=== PATIENT | female | born 1970 | race Caucasian/White ===

== ENCOUNTER 2019-12-14 12:11 | Emergency (ER) | payer BC, SELFPAY ==
--- NOTE | ~2019-12-14 | XR_ITS ---
XR chest 2V DATE: 12/14/2019 13:34 INDICATION: Cough TECHNIQUE: PA and lateral views COMPARISON: 08/30/2017 PA and lateral chest FINDINGS: Normal heart size. No hilar or mediastinal enlargement. No pulmonary infiltrate or consolid ation, pleural effusion or pulmonary vascular congestion or pneumothorax. IMPRESSION: No active cardiopulmonary disease Reviewed, dictated and finalized at location A. ICAL SUPPORT MANAGER
--- NOTE | 2019-12-14 12:24 | PC.NURSE ---
in br to obtain ua spec.
[2019-12-14 12:33] VITALS: BP 134/75; PULSE 61; RESP 16; TEMP 36.9; O2SAT 100
--- NOTE | 2019-12-14 12:53 | ED.GENADULT ---
HPI - General Adult General Chief complaint: Urogenital-Female Stated complaint: UTI Time Seen by Provider: 12/14/19 13:07 Source: patient and RN notes reviewed Mode of arrival: ambulatory Limitations: no limitations History of Present Illness HPI narrative: This patient has 2 different problems the first 1 or symptoms of urinary tract infection that began at 5 AM today. She has had frequency of urination with dysuria. She is also had malodor to the urine. She has not had any new onset of back pain. She has not had any hematuria. She has had a history of UTIs in the past averaging about 1/year and does see a urologist Dr. Cheikh Enriquez. She has a 1-year-old prescription of Cipro that he prescribed for her on 12/31/2018 for 500 mg 1 twice daily number 14 tablets with no refill. She did have that filled a year ago and took 1 this morning about 830. But she feels that the prescription is just about outdated, and may be ineffective. She would like to have the urine test and have a new prescription for Cipro. She indicates that she is done well with that in the past without any adverse effects. She has no history of kidney stones. 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 She has had a several months she thinks 5-6 of pain the right upper mid posterior thoracic area which does not increased with deep breathing but does seem to increase in intensity with movement. She is used ibuprofen OTC without improvement. She states that she does not tolerate narcotic medications due to GI upset. She has had no ear pain, no nasal drainage, no sore throat, no fever, no cough. There is been no nausea no vomiting. She has had no rashes. Related Data Home Medications Medication Instructions Recorded Confirmed clonazepam 12/14/19 lamotrigine 12/14/19 Allergies Allergy/AdvReac Type Severity Reaction Status Date / Time sulfamethoxazole Allergy Intermediate Hives / Verified 08/02/19 12:12 Red Face trimethoprim Allergy Intermediate Hives / Verified 08/02/19 12:12 Red Face codeine Allergy Unknown Verified 07/07/15 10:29 levofloxacin Allergy Unknown Verified 07/07/15 10:29 hydrocodone AdvReac Unknown vomiting Verified 08/02/19 12:12 NARCOTICS Allergy Mild vomiting Uncoded 05/31/11 16:19 profusely Review of Systems Review of Systems: Narrative: CONSTITUTIONAL: Denies fever, chills, or sweats. EYES: Denies visual changes, redness, or discharge. ENT: Denies rhinorrhea, congestion, sore throat, or otalgia. CARDIOVASCULAR: Denies chest pain, palpitations, or edema. RESPIRATORY: Denies cough or dyspnea. GASTROINTESTINAL: Denies abdominal pain, nausea, vomiting, or diarrhea. GENITOURINARY: Denies dysuria or hematuria. SKIN: Denies rash or itching. MUSCULOSKELETAL: Denies back pain, joint pain, or myalgia. NEUROLOGIC: Denies headache, numbness, or weakness. PSYCHIATRIC: Denies anxiety or depression. Noncontributory except as pertains to the past medical history and history of present illness. [facility] Family History Family History (Updated 07/07/15 @ 10:30 by DOCTOR UNKNOWN) Other Carcinoma of colon Diabetes mellitus Hypertension Social History Social History Smoking status: Heavy tobacco smoker Comments At time of signature, I have reviewed and agree with nursing past medical, surgical, social, and family history.Please see nursing chart for further information. There is no relevant family history pertinent to the presenting complaint. Exam Narrative: Exam Narrative: GENERAL: Well-appearing, well-nourished, and in no acute distress. HEAD: Normocephalic, atraumatic. EYES: PERRLA and EOMI. EARS: TM's clear bilaterally and the canals are clear. NOSE: Nares clear, no rhinorrhea or epistaxis. THROAT:Mucous membranes moist.Oropharynx Normal without erythema or exudates. NECK: Supple. No adenopathy of the neck, supracla
== END 2019-12-14 14:10 | disposition home or self-care (01) ==
PROVIDERS: Emergency Provider Family Medicine
DX: S29.012A Strain of muscle and tendon of back wall of thorax, initial encounter (principal); N30.00 Acute cystitis without hematuria; X58.XXXA Exposure to other specified factors, initial encounter; F17.290 Nicotine dependence, other tobacco product, uncomplicated
CPT/HCPCS: 71046; 81003; 87086; 99213; G0463

== ENCOUNTER 2020-04-02 18:05 | Outpatient (CLI) | payer BC, SELFPAY ==
--- NOTE | ~2020-04-02 | XR_ITS ---
EXAMINATION: SACRUM/COCCYX DATE: 04/02/2020 18:28 INDICATION: Tail bone pain and low back pain after fall TECHNIQUE: Three views sacrum/coccyx FINDINGS: No prior studies for comparison. There is no displaced fracture of the sacrum. The coccyx demonstrates overall normal morphology with out acute angulation. IMPRESSION: 1. No acute displaced osseous abnormality of the sacrum. Suspicion for occult or nondisplaced sacral fracture can either be evaluated with CT or MRI. 2. Grossly normal morphology to the coccyx without acute angulation. However, due to the wide range of normal variation of the coccyx, acute injury would be best evaluated by clinical examination and patient's symptoms. Reviewed, dictated and finalized at location A.
== END 2020-04-02 18:06 | disposition home or self-care (01) ==
LOC: ANHIMG 18:11
PROVIDERS: PCP Internal Medicine; Visit Provider Internal Medicine
DX: S39.92XA Unspecified injury of lower back, initial encounter (principal)
CPT/HCPCS: 72220

== ENCOUNTER 2020-08-02 15:46 | Emergency (ER) | payer BC, SELFPAY ==
[2020-08-02 15:58] VITALS: BP 157/98; PULSE 75; RESP 16; TEMP 37.1; O2SAT 98
--- NOTE | 2020-08-02 16:18 | ED.EXTPRO ---
HPI - Extremity Problem General Chief complaint: Extremity Problem,Nontraumatic Stated complaint: left foot pain Time Seen by Provider: 08/02/20 16:04 Source: patient and RN notes reviewed Mode of arrival: ambulatory Limitations: no limitations History of Present Illness HPI Narrative: Patient presents today planing of redness, bruising, and pain to the left lateral foot. 2 days ago she put on some of her daughter's moccasins that had not been worn since last summer. Last night she developed some pain and swelling to her left foot. This morning she noticed a reddened area to the lateral foot. The redness and bruising has significantly spread throughout the day today. Reports that the bruised area is not tender, but the reddened area is significantly tender to palpation. Denies numbness or tingling to the foot or toes. Pain-free at rest, which increases to 8/10 with touching. She has been taking ibuprofen without relief. Believes she may have been bitten by a spider or other insect. Related Data Home Medications Medication Instructions Recorded Confirmed clonazepam 2 mg PO DAILY 12/14/19 08/02/20 lamotrigine 400 mg PO DAILY 12/14/19 08/02/20 furosemide 20 mg PO DAILY 08/02/20 08/02/20 Allergies Allergy/AdvReac Type Severity Reaction Status Date / Time sulfamethoxazole Allergy Intermediate Hives / Verified 08/02/20 15:50 Red Face trimethoprim Allergy Intermediate Hives / Verified 08/02/20 15:50 Red Face codeine Allergy Unknown Vomiting Verified 08/02/20 15:50 levofloxacin Allergy Unknown Unknown Verified 08/02/20 15:50 hydrocodone AdvReac Unknown vomiting Verified 08/02/20 15:50 NARCOTICS Allergy Mild vomiting Uncoded 08/02/20 15:50 profusely Review of Systems Review of Systems: Narrative: CONSTITUTIONAL: Denies body aches, fever, chills, or sweats. EYES: Denies visual changes, redness, or discharge. ENT: Denies rhinorrhea, congestion, sore throat, or otalgia. CARDIOVASCULAR: Denies chest pain, palpitations, or edema. RESPIRATORY: Denies cough or dyspnea. GASTROINTESTINAL: Denies abdominal pain, nausea, vomiting, or diarrhea. GENITOURINARY: Denies dysuria or hematuria. SKIN: Redness, bruising, and pain to the left lateral foot MUSCULOSKELETAL: Denies back pain, joint pain, or myalgia. NEUROLOGIC: Denies headache, numbness, tingling, or weakness. PSYCH: Denies depression or anxiety. [facility], [facility] Past Medical History Medical History (Updated 08/02/20 @ 16:41 by Alix Barrios, [facility], ) Anxiety Asthma Depression Endometriosis History of kidney stones Migraines Surgical History Surgical History (Updated 08/02/20 @ 16:41 by Alix Barrios, [facility], ) H/O: hysterectomy Family History Family History (Updated 07/07/15 @ 10:30 by DOCTOR UNKNOWN) Other Carcinoma of colon Diabetes mellitus Hypertension Social History Social History Smoking status: Heavy tobacco smoker Comments At time of signature, I have reviewed and agree with nursing past medical, surgical, social and family history unless otherwise noted. Please see nursing chart for further information. There is no relevant family history pertinent to the presenting complaint Exam Narrative: Exam Narrative: GENERAL: Well-appearing, well-nourished, and in no acute distress. HEAD: Normocephalic, atraumatic. EYES: EOMI. No redness or drainage. Conjunctivae normal. ENT: Mucous membranes pink and moist. NECK: Normal AROM. CHEST: No respiratory distress. EXTREMITIES: Normal range of motion. No edema. SKIN: Warm, dry, no rash. Capillary refill normal. Normal skin turgor. 2x2cm area of faint erythema and significant tenderness to lateral foot, overlying the mid 4th metatarsal. Possibly 2 pinpoint puncture wounds in the center. No fluctunace. No induration. No drainage. Surrounding the erythema, there is a large area of nontender ecchymosis, overlying most of the lateral half of the dorsum of the foot. No red streaking
== END 2020-08-02 16:28 | disposition home or self-care (01) ==
PROVIDERS: Emergency Provider Nurse Practitioner; PCP Internal Medicine
DX: M79.672 Pain in left foot (principal); L03.116 Cellulitis of left lower limb; S90.862A Insect bite (nonvenomous), left foot, initial encounter; W57.XXXA Bitten or stung by nonvenomous insect and other nonvenomous arthropods, initial encounter; F17.200 Nicotine dependence, unspecified, uncomplicated; J45.909 Unspecified asthma, uncomplicated; F41.9 Anxiety disorder, unspecified; F32.9 Major depressive disorder, single episode, unspecified; N80.9 Endometriosis, unspecified
CPT/HCPCS: 99213; G0463

== ENCOUNTER 2021-02-18 12:54 | Emergency (ER) | payer BC, SELFPAY ==
--- NOTE | ~2021-02-18 | XR_ITS ---
EXAMINATION: XR foot LT min 3V, XR ankle LT min 3V EXAM DATE: 02/18/2021 13:25 (accession [id number]), 02/18/2021 13:26 (accession [id number]) INDICATION: Lat foot/ankle pain/bruising. Twisted last night. Initial encounter. TECHNIQUE: Left foot dorsoplantar, lateral and oblique projections obtained and reviewed. Left ankle frontal, lateral and oblique projections obtained and reviewed. Comparison is made to prior examinat ion from 08/02/2019. FINDINGS: The left ankle mortise appears intact. There is moderate to severe osteoarthritis left 1 st metatarsophalangeal joint. primary osteoarthritis. There are no bony erosions identified. There ar e no acute fractures or dislocations identified. There is no subcutaneous gas. The soft tissue is u nremarkable. There are no radiopaque foreign bodies. IMPRESSION: 1. Left foot and ankle exam without acute osseous findings. 2. Moderate to severe 1st MTP osteoarthritis. Reviewed, dictated and finalized at location A. IMPRESSION: 1. Left foot and ankle exam without acute osseous findings. 2. Moderate to severe 1st MTP osteoarthritis.
[2021-02-18 13:00] VITALS: BP 141/85; PULSE 83; RESP 16; TEMP 36.7; O2SAT 100
--- NOTE | 2021-02-18 13:17 | ED.LOWEXIN ---
HPI - Extremity Injury (Lower) General Chief Complaint: Extremity Injury, Lower Stated Complaint: left ankle pain Time Seen by Provider: 02/18/21 13:17 Source: patient Mode of arrival: ambulatory Limitations: no limitations History of Present Illness HPI Narrative: Aurora Khan is a 41 yo female with a PMH of HTN, smoker, who twisted ankle yesterday on this week and balls there on the ground. Her left ankle went sideways and almost touch the ground and now she has pain in the lateral upper part of her foot and lateral ankle as well as the top of her foot. Her foot is bruised but she is able to limp on foot Related Data Home Medications Medication Instructions Recorded Confirmed clonazepam 2 mg PO DAILY 12/14/19 08/02/20 lamotrigine 400 mg PO DAILY 12/14/19 08/02/20 Allergies Allergy/AdvReac Type Severity Reaction Status Date / Time sulfamethoxazole Allergy Intermediate Hives / Verified 08/02/20 15:50 Red Face trimethoprim Allergy Intermediate Hives / Verified 08/02/20 15:50 Red Face codeine Allergy Unknown Vomiting Verified 08/02/20 15:50 levofloxacin Allergy Unknown Unknown Verified 08/02/20 15:50 hydrocodone AdvReac Unknown vomiting Verified 08/02/20 15:50 NARCOTICS Allergy Mild vomiting Uncoded 08/02/20 15:50 profusely Review of Systems Review of Systems: Narrative: CONSTITUTIONAL: Denies fever, chills, sweats. EYES: Denies visual changes, redness, discharge. ENT: Denies rhinorrhea, congestion, sore throat, otalgia. CARDIOVASCULAR: Denies chest pain, palpitations, edema. RESPIRATORY: Denies dyspnea, wheezing, cough GASTROINTESTINAL: Denies abdominal pain, nausea, vomiting, diarrhea. GENITOURINARY: Denies dysuria, hematuria, abnormal discharge SKIN: Denies rash or itching. NEUROLOGIC: Denies numbness, or focal weakness. PSYCHIATRIC: Denies anxiety or depression. Left foot pain and swelling with bruising from slipping yesterday PMFSH Past Medical History Medical History Anxiety Asthma Depression Endometriosis History of kidney stones Migraines Surgical History Surgical History H/O: hysterectomy Family History Family History Other Carcinoma of colon Diabetes mellitus Hypertension Social History Social History Smoking status: Heavy tobacco smoker Comments At time of signature, I agree with nursing past medical, surgical, social and family history. There is no relevant family history pertinent to the presenting complaint. Blood pressure elevated at this visit but pain patient is in pain. She will follow up with her primary care physician this next week Exam Narrative: Exam Narrative: GENERAL: This is a well-nourished, well-developed patient, in mild distress. HEAD: normocephalic, atraumatic. EYES:Sclera clear/white. Vision is grossly intact. EARS: External ears normal, auditory canals clear and without drainage, TMs normal without perforation. ithout nasal discharge, nares without redness, no rhinorrhea. THROAT: Mucous membranes moist, NECK: Neck supple, CARDIOVASCULAR: Regular rate and rhythm without murmurs, gallops, or rubs. RESPIRATORY: Coarse to auscultation. Breath sounds equal bilaterally. No wheezes, rales, or rhonchi. GASTROINTESTINAL: Abdomen , SKIN: warm, intact with no suspicious lesions or rash, good texture and turgor. NEURO: awake, alert, and oriented to person, place and time. There were no obvious focal neurologic abnormalities. Steady gait EXTREMITIES: Left foot swollen with ecchymosis to lateral and upper part of core machine tender on lateral side of foot as well as left malleolus, 2+ pedal pulse, able to partially point toe difficult to flex foot without pain BACK: Nontender without deformity Course Course Emergency Course: Patient came to
== END 2021-02-18 13:50 | disposition home or self-care (01) ==
PROVIDERS: Emergency Provider Nurse Practitioner; PCP Internal Medicine
DX: S93.602A Unspecified sprain of left foot, initial encounter (principal); W22.8XXA Striking against or struck by other objects, initial encounter; I10 Essential (primary) hypertension; J45.909 Unspecified asthma, uncomplicated; F41.9 Anxiety disorder, unspecified; F29 Unspecified psychosis not due to a substance or known physiological condition; N80.9 Endometriosis, unspecified; F17.200 Nicotine dependence, unspecified, uncomplicated
CPT/HCPCS: 73610; 73630; 99213; G0463

== ENCOUNTER 2021-11-04 18:04 | Emergency (ER) | payer BC, SELFPAY ==
--- NOTE | ~2021-11-04 | XR_ITS ---
EXAMINATION: XR sacrum coccyx min 2V EXAM DATE: 11/04/2021 19:45 INDICATION: tail bone pain after fall last night TECHNIQUE: Sacrococcygeal frontal, inlet, lateral projections. Correlation was made with lumbar x-ray 04/02/2020. FINDINGS: There are no acute sacrococcygeal fractures or dislocations identified. There is no subcut aneous gas. The soft tissue is unremarkable. There are no radiopaque foreign bodies. There is no significant interval change. IMPRESSION: 1. Sacrococcygeal exam without acute osseous findings. Reviewed, dictated and finalized at location A. NT ACQUISITION PROJECT MANAGER
--- NOTE | ~2021-11-04 | XR_ITS ---
EXAMINATION: XR lumbar spine min 4V EXAM DATE: 11/04/2021 19:44 INDICATION: MID-LOW back pain after fall last night. Initial encounter. TECHNIQUE: Lumber spine frontal, lateral, bilateral oblique projections. Coned down frontal and lat eral L5-S1 lumbar projections for interpretation. Comparison is made to prior examination from 020. FINDINGS: There are no acute fractures identified. There is mild thoracolumbar disc disease. Mild to moderate lumbar facet arthropathy. No spondylolysis on the oblique projections. The vertebral bodies are aligned in the AP dimension. Sacrum, sacroiliac joints, sacral arcuate lines are intact. Parasp inal soft tissue is unremarkable. IMPRESSION: Mild disc disease, mild to moderate arthropathy. Reviewed, dictated and finalized at location A. E OUT WORKER
[2021-11-04 18:13] VITALS: BP 156/93; PULSE 76; RESP 18; TEMP 36.2; O2SAT 99
--- NOTE | 2021-11-04 19:28 | ED.FALL ---
HPI - Fall General Chief Complaint: Fall Stated Complaint: fall, tailbone pain Time Seen by Provider: 11/04/21 19:16 History of Present Illness HPI Narrative: 51-year-old female presents to emergency department for evaluation of tailbone pain after having a ground-level fall. Patient states last night she was walking in sock feet and stepped on a towel causing her to slip and landed on her tailbone. Patient states she did strike her head but denies any head injury denies any loss consciousness. Patient does also report some left wrist pain but denies any significant discomfort. Patient's primary complaint is tailbone pain. Patient denies any associated numbness or weakness. Patient was able to have a bowel movement without any discomfort. Related Data Home Medications Medication Instructions Recorded Confirmed clonazepam 2 mg PO DAILY 12/14/19 08/02/20 lamotrigine 400 mg PO DAILY 12/14/19 08/02/20 Allergies Allergy/AdvReac Type Severity Reaction Status Date / Time sulfamethoxazole Allergy Intermediate Hives / Verified 11/04/21 19:19 Red Face trimethoprim Allergy Intermediate Hives / Verified 11/04/21 19:19 Red Face codeine Allergy Unknown Vomiting Verified 11/04/21 19:19 levofloxacin Allergy Unknown Unknown Verified 11/04/21 19:19 hydrocodone AdvReac Unknown vomiting Verified 11/04/21 19:19 NARCOTICS Allergy Mild vomiting Uncoded 11/04/21 19:19 profusely Review of Systems Review of Systems: CONSTITUTIONAL: Denies fever, chills, or sweats. EYES: Denies visual changes, redness, or discharge. CARDIOVASCULAR: Denies chest pain, palpitations, or edema. RESPIRATORY: Denies cough or dyspnea. GASTROINTESTINAL: Denies abdominal pain, nausea, vomiting, or diarrhea. GENITOURINARY: Denies dysuria or hematuria. SKIN: Denies rash or itching. MUSCULOSKELETAL: Left wrist pain and tailbone pain NEUROLOGIC: Denies headache, numbness, or weakness. PSYCHIATRIC: Denies anxiety or depression. [facility] Past Medical History Medical History Anxiety Asthma Depression Endometriosis History of kidney stones Migraines Surgical History Surgical History H/O: hysterectomy Family History Family History Other Carcinoma of colon Diabetes mellitus Hypertension Social History Social History Smoking status: Heavy tobacco smoker Exam Narrative: APPEARANCE: Well appearing, no pain in distress, well-nourished. HEAD: normocephalic, atraumatic. EYES: PERRLA/EOMI, conjunctivae clear. NOSE: Normal no drainage THROAT: Pharynx clear, no exudate. NECK: Supple. No adenopathy, no masses. RESPIRATORY: Airway patent, respirations nonlabored. Clear to auscultation bilaterally, no rales, rhonchi, wheezing. CARDIOVASCULAR: Regular rate and rhythm without murmurs rubs or gallops. ABDOMINAL: Soft, nontender, nondistended, normal bowel sounds MUSCULOSKELETAL: Lower back tenderness to palpation, no ecchymosis, no step-offs, no deformity. Neurovascularly intact. NEURO: Alert. Cranial nerves II through XII intact. Good gait. Good coordination SKIN: Warm, dry. Normal Color PSYCHIATRIC: Normal affect/mood. Course Course Emergency Course: 51-year-old female presented to emergency department for evaluation of tailbone pain after having a ground-level fall. Patient's x-ray reviewed. Patient was updated on the results of her x-rays and on the plan for symptomatic treatment at home. Patient reports he does have follow-up scheduled with her primary care physician. Clinical impression was tailbone injury and left wrist pain Patient was discharged to home Patient was stable at time of discharge from the emergency department. Vital Signs Vital signs: Vital Signs Temperature 97.2 F L 11/04/21 18:13 Pulse Rate 76 11/04/21
--- NOTE | 2021-11-04 19:32 | PC.NURSE ---
Pt to imaging via wheelchair at this time.
[2021-11-04 20:25] VITALS: BP 157/89; PULSE 70; RESP 16; O2SAT 99
== END 2021-11-04 20:27 | disposition home or self-care (01) ==
PROVIDERS: Emergency Provider Emergency Medicine; PCP Internal Medicine
DX: S39.92XA Unspecified injury of lower back, initial encounter (principal); J45.909 Unspecified asthma, uncomplicated; F41.9 Anxiety disorder, unspecified; F32.9 Major depressive disorder, single episode, unspecified; F17.200 Nicotine dependence, unspecified, uncomplicated; W01.0XXA Fall on same level from slipping, tripping and stumbling without subsequent striking against object, initial encounter
CPT/HCPCS: 72110; 72220; 99283

== ENCOUNTER 2022-12-28 13:30 | Emergency (ER) | payer BC, SELFPAY ==
--- NOTE | 2022-12-28 13:32 | ED.URI ---
HPI - URI/Sore Throat General Chief Complaint: Upper Respiratory Infection Stated Complaint: Sore Throat Time Seen by Provider: 12/28/22 13:53 Source: patient, RN notes reviewed and old records reviewed Mode of arrival: ambulatory Limitations: no limitations History of Present Illness HPI Narrative: 52-year-old female presents to the [facility] with complaints of a sore throat for 2 and half days. Patient denies any fevers. Patient states she has been exposed by her son to strep. He tested positive a couple of days ago Onset (ago): day(s) (2) Related Data Home Medications Medication Instructions Recorded Confirmed clonazepam 2 mg tablet mg 12/28/22 lamotrigine 200 mg tablet mg 12/28/22 losartan 100 mg tablet mg 12/28/22 paroxetine HCl 10 mg tablet mg PO 12/28/22 12/28/22 Allergies Allergy/AdvReac Type Severity Reaction Status Date / Time sulfamethoxazole Allergy Intermediate Hives / Verified 12/28/22 13:42 Red Face trimethoprim Allergy Intermediate Hives / Verified 12/28/22 13:42 Red Face codeine Allergy Unknown Vomiting Verified 12/28/22 13:42 levofloxacin Allergy Unknown Unknown Verified 12/28/22 13:42 hydrocodone AdvReac Unknown vomiting Verified 12/28/22 13:42 NARCOTICS Allergy Mild vomiting Uncoded 12/28/22 13:42 profusely Review of Systems Review of Systems: All systems reviewed & are unremarkable except as noted in HPI and below Constitutional: Constitutional: Reports no additional constitutional complaints Eyes: Eyes: Reports no additional eye complaints ENT: Reports as per HPI and Reports sore throat Cardiovascular: Cardiovascular: Reports no additional cardiovascular complaints, Denies chest pain and Denies dyspnea Respiratory: Respiratory: Reports no additional respiratory complaints, Denies chest congestion, Denies cough and Denies dyspnea Gastrointestinal: Gastrointestinal: Reports no additional gastrointestinal complaints, Denies abdominal pain, Denies nausea and Denies vomiting Musculoskeletal: Musculoskeletal: Reports no additional musculoskeletal complaints Integumentary/Breasts: Skin/Breast: Reports system reviewed and no additional complaints, except as docu Neurologic: Reports system reviewed and no additional complaints, except as documented Psychiatric: Psychiatric: Reports no additional psychiatric complaints Allergic/Immunologic: Allergic/Immunologic: Reports no additional allergic/immunologic complaints PMFSH Past Medical History Medical History Anxiety Asthma Depression Endometriosis History of kidney stones Migraines Surgical History Surgical History H/O: hysterectomy Family History Family History Other Carcinoma of colon Diabetes mellitus Hypertension Social History Social History Smoking status: Heavy tobacco smoker Comments At the time of my signature, I reviewed and agree with the nursing past medical, surgical, social, and family history. There is no relevant family history pertinent to the patient complaint. Exam Const: General: cooperative, healthy appearing, comfortable, no acute distress, well developed, alert and well nourished Nutritional Appearance: well nourished Orientation/consciousness: patient oriented x3 Limitations: no limitations HENMT: Head: normal to inspection Ears: hearing grossly normal bilaterally and external ears normal Face/Nose/Sinus: Normal external nose present, Normal nares present, Normal nasal mucous membranes and turbinates present and normal facial exam Face and sinus: normal facial exam Mouth: Yes Normal oral and palatal mucosa present, Yes lip normal and Yes moist mucous membranes Throat: uvula midline and posterior oropharynx abnormal erythema; no edema Eyes: General: appeara
[2022-12-28 13:43] VITALS: BP 122/71; PULSE 66; RESP 18; TEMP 37.1; O2SAT 100
== END 2022-12-28 14:12 | disposition home or self-care (01) ==
PROVIDERS: Emergency Provider Nurse Practitioner; PCP Internal Medicine
DX: J02.0 Streptococcal pharyngitis (principal)
CPT/HCPCS: 87880; 99213; G0463

== ENCOUNTER 2023-02-28 12:37 | Emergency (ER) | payer BC, SELFPAY ==
--- NOTE | ~2023-02-28 | CT_ITS ---
EXAMINATION: CT brain wo con DATE: 02/28/2023 13:16 INDICATION: Head injury. TECHNIQUE: Computed tomography (CT) of the head was performed without intravenous contrast. The mA wa s adjusted according to patient size. Iterative reconstruction technique was employed. The dose-lengt h product was 681.00 mGy-cm. COMPARISON: Head CT 07/26/2010 FINDINGS: There is no intracranial hemorrhage, acute infarction, or abnormal intracranial mass lesion . The ventricles are normal in size. There is a mucous retention cyst in right maxillary sinus. There is mild mucosal thickening in the ethmoid sinuses. There is a small right mastoid effusion. IMPRESSION: 1. Normal brain. Reviewed, dictated and finalized at location A. IMPRESSION: 1. Normal brain.
--- NOTE | ~2023-02-28 | CT_ITS ---
EXAMINATION: CT cervical spine wo con DATE: 02/28/2023 13:16 INDICATION: Head injury. TECHNIQUE: Computed tomography (CT) of the cervical spine was performed without intravenous contrast. Automated exposure control and iterative reconstruction technique were employed. The dose-length pro duct was 252.49 mGy-cm. COMPARISON: None FINDINGS: There is a 2.2 cm cystic nodule in right thyroid lobe. Bone alignment is normal. Vertebral body heights and intervertebral disc heights are normal. The following disc levels are specifically d iscussed: C2-C3: There is no uncovertebral joint osteoarthritis. There is mild right facet joint osteoarthritis . There is no neural foraminal stenosis. There is no central canal stenosis. C3-C4: There is mild right uncovertebral joint osteoarthritis. There is no facet joint osteoarthritis . There is no neural foraminal stenosis. There is no central canal stenosis. C4-C5: There is no uncovertebral joint osteoarthritis. There is no facet joint osteoarthritis. There is no neural foraminal stenosis. There is no central canal stenosis. C5-C6: There is mild right uncovertebral joint osteoarthritis. There is mild left facet joint osteoar thritis. There is mild right neural foraminal stenosis. There is mild central canal stenosis. C6-C7: There is no uncovertebral joint osteoarthritis. There is no facet joint osteoarthritis. There is no neural foraminal stenosis. There is no central canal stenosis. C7-T1: There is no uncovertebral joint osteoarthritis. There is moderate right and severe left facet joint osteoarthritis. There is mild left neural foraminal stenosis. There is no central canal stenosi s. IMPRESSION: 1. No fracture. 2. Mild cervical spondylosis. Reviewed, dictated and finalized at location A.
[2023-02-28 12:41] VITALS: BP 167/93; PULSE 91; RESP 15; TEMP 36.8; O2SAT 100
--- NOTE | 2023-02-28 13:37 | ED.HEATRA ---
HPI - Head Injury General Chief complaint: Head Injury Stated complaint: head injury yesterday Time Seen by Provider: 02/28/23 12:49 History of Present Illness HPI Narrative: 52-year-old female history of hypertension and anxiety presents to the emergency room for evaluation of a head injury. Patient states yesterday she tripped over her cat, struck her dresser back of her head. Patient denies any LOC or altered mental status. Denies confusion, or lightheadedness. Denies any nausea or vomiting or somnolence. Patient states that she is got mild headache with some blurred vision in her left eye. Patient also states that she was recently treated for left eye infection, and reports that her left eye blurriness could be due to that. Denies neck pain or any other aggravating injuries. Related Data Home Medications Medication Instructions Recorded Confirmed clonazepam 2 mg tablet mg 12/28/22 lamotrigine 200 mg tablet mg 12/28/22 losartan 100 mg tablet mg 12/28/22 paroxetine HCl 10 mg tablet mg PO 12/28/22 12/28/22 Allergies Allergy/AdvReac Type Severity Reaction Status Date / Time sulfamethoxazole Allergy Intermediate Hives / Verified 12/28/22 13:42 Red Face trimethoprim Allergy Intermediate Hives / Verified 12/28/22 13:42 Red Face codeine Allergy Unknown Vomiting Verified 12/28/22 13:42 levofloxacin Allergy Unknown Unknown Verified 12/28/22 13:42 hydrocodone AdvReac Unknown vomiting Verified 12/28/22 13:42 NARCOTICS Allergy Mild vomiting Uncoded 12/28/22 13:42 profusely Review of Systems Review of Systems: CONSTITUTIONAL: Denies fever, chills, or sweats. EYES: Denies visual changes, redness, or discharge. ENT: Denies rhinorrhea, congestion, sore throat, or otalgia. CARDIOVASCULAR: Denies chest pain, palpitations, or edema. RESPIRATORY: Denies cough or dyspnea. GASTROINTESTINAL: Denies abdominal pain, nausea, vomiting, or diarrhea. GENITOURINARY: Denies dysuria or hematuria. SKIN: Denies rash or itching. MUSCULOSKELETAL: Denies back pain, joint pain, or myalgia. NEUROLOGIC: Denies headache, numbness, dizziness, or weakness. PSYCHIATRIC: Denies anxiety or depression. [facility] Past Medical History Medical History Anxiety Asthma Depression Endometriosis History of kidney stones Migraines Surgical History Surgical History H/O: hysterectomy Family History Family History Other Carcinoma of colon Diabetes mellitus Hypertension Social History Social History Smoking status: Heavy tobacco smoker Exam Narrative: GENERAL: Well-appearing, well-nourished, no physical limitations, and in no acute distress. HEAD: Normocephalic, tenderness to the posterior scalp EYES: Conjunctivae normal, PERRLA and EOMI. CHEST: Clear to auscultation. No respiratory distress. No wheezes rales or rhonchi. HEART: Regular rate and rhythm. No murmur heard. Normal peripheral pulses. BACK: No cervical tenderness, step-offs, bony abnormality; FROM EXTREMITIES: Normal range of motion. No edema. No clubbing or cyanosis SKIN: Warm, dry, no rash. No noted wounds NEURO: No focal deficits. Alert and oriented x3. MAEW. CN's II-XI intact bilaterally, normal gait PSYCH: Cooperative. Normal mood and affect. Course Vital Signs Vital signs: Vital Signs Temperature 36.8 C 02/28/23 12:41 Pulse Rate 91 02/28/23 12:41 Respiratory Rate 15 02/28/23 12:41 Blood Pressure 167/93 H 02/28/23 12:41 Pulse Oximetry 100 02/28/23 12:41 Oxygen Delivery Room Air 02/28/23 12:41 Temperature 36.8 C 02/28/23 12:41 Pulse Rate 91 02/28/23 12:41 Respiratory Rate 15 02/28/23 12:41 Blood Pressure 167/93 H 02/28/23 12:41 Pulse Oximetry 100 02/28/23 12:41 Oxygen Delivery Room Air
[2023-02-28 13:49] VITALS: BP 133/86; PULSE 66; RESP 17; O2SAT 99
== END 2023-02-28 13:50 | disposition home or self-care (01) ==
PROVIDERS: Emergency Provider Nurse Practitioner Family
DX: S09.90XA Unspecified injury of head, initial encounter (principal); J45.909 Unspecified asthma, uncomplicated; I10 Essential (primary) hypertension; N80.9 Endometriosis, unspecified; F41.9 Anxiety disorder, unspecified; F17.200 Nicotine dependence, unspecified, uncomplicated; Z87.442 Personal history of urinary calculi; Z90.710 Acquired absence of both cervix and uterus; M47.812 Spondylosis without myelopathy or radiculopathy, cervical region; W01.0XXA Fall on same level from slipping, tripping and stumbling without subsequent striking against object, initial encounter
CPT/HCPCS: 70450; 72125; 99284

== ENCOUNTER 2023-06-29 16:11 | Emergency (ER) | payer BC, SELFPAY ==
[2023-06-29 16:22] VITALS: BP 130/79; PULSE 77; RESP 16; TEMP 37.2; O2SAT 99
--- NOTE | 2023-06-29 17:16 | ED.URI ---
HPI - URI/Sore Throat General Chief Complaint: Upper Respiratory Infection Stated Complaint: Sore Throat Time Seen by Provider: 06/29/23 17:10 Source: patient, RN notes reviewed and old records reviewed Mode of arrival: ambulatory Limitations: no limitations History of Present Illness HPI Narrative: 53-year-old female who presents to [facility] care with complaints of sore throat,thick mucous and nausea and vomiting. Ptient states that she awoke in the middle of th night with nausea and vomiting and this morning has sore throat and the sides of her tongue are red and painful also.Patient reports that she has taken some OTC pain reliever states that it is painful to swallow. Patient reports strep throat in December MD elicited complaint: sore throat and other (tongue is sore ) Onset (ago): day(s) (day one of symptoms.) Pain scale (0-10): 5 Able to tolerate fluids by mouth: Yes Exacerbating factors: swallowing Treatments prior to arrival: acetaminophen Related Data Home Medications Medication Instructions Recorded Confirmed clonazepam 2 mg tablet mg 12/28/22 lamotrigine 200 mg tablet mg 12/28/22 losartan 100 mg tablet mg 12/28/22 paroxetine HCl 10 mg tablet mg PO 12/28/22 12/28/22 amlodipine 5 mg tablet mg 06/29/23 atorvastatin 20 mg tablet mg 06/29/23 Allergies Allergy/AdvReac Type Severity Reaction Status Date / Time sulfamethoxazole Allergy Intermediate Hives / Verified 12/28/22 13:42 Red Face trimethoprim Allergy Intermediate Hives / Verified 12/28/22 13:42 Red Face codeine Allergy Unknown Vomiting Verified 12/28/22 13:42 levofloxacin Allergy Unknown Unknown Verified 12/28/22 13:42 hydrocodone AdvReac Unknown vomiting Verified 12/28/22 13:42 NARCOTICS Allergy Mild vomiting Uncoded 12/28/22 13:42 profusely Review of Systems Review of Systems: CONSTITUTIONAL: Denies malaise, chills, sweats, or fever. EYES: Denies visual changes, redness, or discharge. ENT: Reports rhinorrhea, congestion, no sinus pain, no otalgia and positive for sore throat and sore tongue CARDIOVASCULAR: Denies chest pain, palpitations, or edema. RESPIRATORY: Reports no cough.? Denies dyspnea. GASTROINTESTINAL: Denies abdominal pain, nausea, vomiting, diarrhea SKIN: Denies rash or itching. MUSCULOSKELETAL: Denies myalgia. NEUROLOGIC: Denies headache. All systems reviewed & are unremarkable except as noted in HPI and below PMFSH Past Medical History Medical History Anxiety Asthma Depression Endometriosis History of kidney stones Migraines Surgical History Surgical History H/O: hysterectomy Family History Family History Other Carcinoma of colon Diabetes mellitus Hypertension Social History Social History Smoking status: Heavy tobacco smoker Comments At time of signature, agree with nursing past medical, surgical, social and family history. There is no relevant family history pertinent to the presenting complaint Exam Narrative: GENERAL: Well-appearing, well-nourished, and in no acute distress. HEAD: Normocephalic EYES: PERRLA, conjunctivae clear ENT: Nares clear, turbinates edematous and erythematous, clear discharge. Mucous membranes moist. TM pearly dhillon with dull light reflex bilaterally; no tragal tenderness. Oropharynx erythematous without lesions. Tonsils red enlarged and without exudate, no drooling, no hoarseness, no trismus, uvula midline.tongue red bilateral sides, painful swallowing.thick post nasal drainage noted in back of throat NECK: Supple. lymphadenopathy painful glands on palpation CHEST: Clear to auscultation, breath sounds equal. No wheezing, rhonchi, rales, or stridor. No respiratory distress, speaks in full sentences.SAO2 99% on room air.
== END 2023-06-29 17:25 | disposition home or self-care (01) ==
PROVIDERS: Emergency Provider Registered Nurse
DX: J03.90 Acute tonsillitis, unspecified (principal); J45.909 Unspecified asthma, uncomplicated; N80.9 Endometriosis, unspecified; F41.9 Anxiety disorder, unspecified; F32.A Depression, unspecified; F17.200 Nicotine dependence, unspecified, uncomplicated
CPT/HCPCS: 87081; 87880; 99213; G0463

== ENCOUNTER 2023-09-28 10:54 | Emergency (ER) | payer BC, SELFPAY ==
--- NOTE | 2023-09-28 11:05 | ED.URI ---
HPI - URI/Sore Throat General Chief Complaint: Upper Respiratory Infection Stated Complaint: sinus pressure Time Seen by Provider: 09/28/23 11:05 Source: patient Mode of arrival: ambulatory Limitations: no limitations History of Present Illness HPI Narrative: Nabila is a 53-year-old female patient presenting to the clinic today with complaints of sinus pressure and congestion times 2 days. She reports she is having a lot of pressure to the left maxillary sinuses. Is blowing out some yellow nasal drainage. States she also has a headache, sore throat, and a cough. Has felt feverish/chills but did not check her temperature. MD elicited complaint: sore throat and nasal congestion Related Data Home Medications Medication Instructions Recorded Confirmed clonazepam 2 mg tablet mg 12/28/22 lamotrigine 200 mg tablet mg 12/28/22 losartan 100 mg tablet mg 12/28/22 amlodipine 5 mg tablet mg 06/29/23 atorvastatin 20 mg tablet mg 06/29/23 Allergies Allergy/AdvReac Type Severity Reaction Status Date / Time sulfamethoxazole Allergy Intermediate Hives / Verified 09/28/23 11:11 Red Face trimethoprim Allergy Intermediate Hives / Verified 09/28/23 11:11 Red Face codeine Allergy Unknown Vomiting Verified 09/28/23 11:11 levofloxacin Allergy Unknown Unknown Verified 09/28/23 11:11 hydrocodone AdvReac Unknown vomiting Verified 09/28/23 11:11 NARCOTICS AdvReac Mild vomiting Uncoded 09/28/23 11:11 profusely Review of Systems Review of Systems: Pertinent positives per HPI. Patient denies any rash, visual changes, dizziness, shortness of breath, chest pain, palpitations, nausea, vomiting, diarrhea, constipation, abdominal pain, or any urinary issues. [facility] Past Medical History Medical History Anxiety Asthma Depression Endometriosis History of kidney stones Migraines Surgical History Surgical History H/O: hysterectomy Family History Family History Other Carcinoma of colon Diabetes mellitus Hypertension Social History Social History Smoking status: Heavy tobacco smoker Comments At the time of my signature, I reviewed and agree with the nursing past medical, surgical, social, and family history. There is no relevant family history pertinent to the patient complaint. Exam Narrative: General: Well-developed, well nourished, anxious Head: Normocephalic, atraumatic Eyes: Pupils equally round and reactive to light bilaterally, EOM intact, sclera and conjunctive clear, no discharge, lids normal Ears: TMs intact and clear, ear canals clear, no drainage, grossly hearing normal. Nose: Nares patent, clear nasal discharge, moderate inflammation, left-sided maxillary sinus tenderness. Mouth: Oral pharynx red without lesions or masses, good dentition, MMM. Postnasal drip Neck: Supple, trachea midline, no enlargement of anterior or posterior cervical nodes, no thyroid masses or goiter palpable. Cardio: Regular rate and rhythm, s1 and s2 normal, no murmur appreciated. Resp: Clear to auscultation bilaterally, no rhonchi, rales, wheezing or rubs Course Course Emergency Course: Portions of this record may have been created with voice recognition software. Level of Care: Express Care Visit Vital Signs Vital signs: Vital signs reviewed MDM - URI/Sore Throat MDM Narrative Medical decision making narrative: At the time of visit patient is resting comfortably on the exam table. Influenza, strep, and COVID test were performed and were negative in the clinic today. Patient is nontoxic appearing. While in the clinic patient started complaining about nausea as she is having drainage going in the back of her throat. Zofran 8 mg ODT was given in the clinic. I suspe
[2023-09-28 11:12] VITALS: BP 127/87; PULSE 104; RESP 16; TEMP 36.6; O2SAT 100
[2023-09-28] MEDS: ONDANSETRON HCL ODT 4 MG TABLET 8 MG SUBLINGUAL (11:58)
== END 2023-09-28 12:08 | disposition home or self-care (01) ==
PROVIDERS: Emergency Provider Nurse Practitioner Family
DX: B34.9 Viral infection, unspecified (principal); J06.9 Acute upper respiratory infection, unspecified; J02.9 Acute pharyngitis, unspecified; Z20.822 Contact with and (suspected) exposure to COVID-19; J45.909 Unspecified asthma, uncomplicated; N80.9 Endometriosis, unspecified; F17.200 Nicotine dependence, unspecified, uncomplicated
CPT/HCPCS: 87081; 87426; 87804; 87880; 99213; A9270; C9803; G0463

== ENCOUNTER 2024-02-01 12:01 | Emergency (ER) | payer BC, SELFPAY ==
--- NOTE | ~2024-02-01 | XR_ITS ---
EXAMINATION: XR hand LT min 3V INDICATION: Left hand pain TECHNIQUE: Three views of the left hand are obtained. COMPARISON: None available FINDINGS: No fracture, dislocation, or subluxation. The bones, soft tissues, and joint spaces are nor mal. IMPRESSION: 1. No acute osseous abnormality. Reviewed, dictated and finalized at location A.
[2024-02-01 12:07] VITALS: BP 152/84; PULSE 81; RESP 18; TEMP 36.5; O2SAT 100
--- NOTE | 2024-02-01 12:56 | ED.GENADULT ---
HPI - General Adult General Chief complaint: Extremity Injury, Upper Stated complaint: left hand injury Time Seen by Provider: 02/01/24 12:13 History of Present Illness HPI narrative: 53-year-old female presenting to the emergency department for evaluation of left hand pain. Patient states when she was walking in the night she struck her hand on the corner of a piece of furniture. Patient noticed that she had a hematoma there rather quickly patient did elevate and ice through the night then presented to the emergency department for evaluation. Patient does report pain but denies any associated numbness or weakness. Related Data Home Medications Medication Instructions Recorded Confirmed clonazepam 2 mg tablet mg 12/28/22 lamotrigine 200 mg tablet mg 12/28/22 losartan 100 mg tablet mg 12/28/22 amlodipine 5 mg tablet mg 06/29/23 atorvastatin 20 mg tablet mg 06/29/23 Allergies Allergy/AdvReac Type Severity Reaction Status Date / Time sulfamethoxazole Allergy Intermediate Hives / Verified 09/28/23 11:11 Red Face trimethoprim Allergy Intermediate Hives / Verified 09/28/23 11:11 Red Face codeine Allergy Unknown Vomiting Verified 09/28/23 11:11 levofloxacin Allergy Unknown Unknown Verified 09/28/23 11:11 hydrocodone AdvReac Unknown vomiting Verified 09/28/23 11:11 NARCOTICS AdvReac Mild vomiting Uncoded 09/28/23 11:11 profusely Review of Systems Review of Systems: All systems reviewed & are unremarkable except as noted in HPI and below PMFSH Past Medical History Medical History Anxiety Asthma Depression Endometriosis History of kidney stones Migraines Surgical History Surgical History H/O: hysterectomy Family History Family History Other Carcinoma of colon Diabetes mellitus Hypertension Social History Social History Smoking status: Heavy tobacco smoker Exam Narrative: APPEARANCE: Well appearing, no pain, no distress, well-nourished. HEAD: normocephalic, atraumatic. EYES: PERRLA/EOMI, conjunctivae clear. NOSE: Normal no drainage EARS:TMS clear with good light reflex. THROAT: Pharynx clear, no exudate. NECK: Supple. No adenopathy, no masses. RESPIRATORY: Airway patent, respirations nonlabored. Clear to auscultation bilaterally, no rales, rhonchi, wheezing. CARDIOVASCULAR: Regular rate and rhythm without murmurs rubs or gallops. ABDOMINAL: Soft, nontender, nondistended, normal bowel sounds MUSCULOSKELETAL: Contusion to dorsum of left hand with ecchymosis. Neurovascularly intact. No deformity NEURO: Alert. Cranial nerves II through XII intact. Good gait. Good coordination SKIN: Warm, dry. Normal Color Course Course Emergency Course: patient was discharged with outpatient follow-up Vital Signs Vital signs: Vital Signs Temperature 97.7 F 02/01/24 12:07 Pulse Rate 81 02/01/24 12:07 Respiratory Rate 18 02/01/24 12:07 Blood Pressure 152/84 H 02/01/24 12:07 Pulse Oximetry 100 02/01/24 12:07 Oxygen Delivery Room Air 02/01/24 12:07 Temperature 97.7 F 02/01/24 12:07 Pulse Rate 81 02/01/24 12:07 Respiratory Rate 18 02/01/24 12:07 Blood Pressure 152/84 H 02/01/24 12:07 Pulse Oximetry 100 02/01/24 12:07 Oxygen Delivery Room Air 02/01/24 12:07 Medical Decision Making [facility] Narrative Medical decision making narrative: 53-year-old female presenting to the emergency department for evaluation of left hand pain. Patient does have a resolving hematoma and contusion to the left hand x-ray showed no acute fractures or dislocations. Differential Diagnosis Differential Diagnosis: hand fracture, hand contusion, hematoma Vital Signs Vital Signs: Vital Signs Temperature 97.7 F 02/01/24 12:0
== END 2024-02-01 13:17 | disposition home or self-care (01) ==
PROVIDERS: Emergency Provider Emergency Medicine
DX: S60.222A Contusion of left hand, initial encounter (principal); J45.909 Unspecified asthma, uncomplicated; F41.9 Anxiety disorder, unspecified; F32.A Depression, unspecified; F17.200 Nicotine dependence, unspecified, uncomplicated; Z87.442 Personal history of urinary calculi; Z90.710 Acquired absence of both cervix and uterus; W22.03XA Walked into furniture, initial encounter
CPT/HCPCS: 73130; 99283

== ENCOUNTER 2024-05-03 16:08 | Emergency (ER) | payer BC, SELFPAY ==
[2024-05-03 16:23] VITALS: BP 119/83; PULSE 96; RESP 16; TEMP 37.6; O2SAT 98
[2024-05-03 16:25] VITALS: BP 119/83; PULSE 96; RESP 16; TEMP 39.6; O2SAT 98
--- NOTE | 2024-05-03 16:33 | ED.GENADULT ---
HPI - General Adult General Chief complaint: Nausea/Vomiting/Diarrhea Stated complaint: throwing up x3 days,back pain Time Seen by Provider: 05/03/24 16:14 Source: patient, RN notes reviewed and old records reviewed Mode of arrival: ambulatory Limitations: no limitations History of Present Illness HPI narrative: Patient presents with complaints of runny nose, left ear pain, nausea, vomiting, for 3 days. She is also complaining of some back pain. She is unsure about fever status. Initial temperature recorded here was recorded air, patient is actually afebrile at this time. She does report poor p.o. intake over the past several days . She reports other family members have had similar illnesses, but feels hers is more severe Related Data Home Medications Medication Instructions Recorded Confirmed clonazepam 2 mg tablet 2 mg PO DAILY 12/28/22 05/03/24 lamotrigine 200 mg tablet 200 mg PO DAILY 12/28/22 05/03/24 losartan 100 mg tablet 100 mg PO DAILY 12/28/22 05/03/24 amlodipine 5 mg tablet 5 mg PO DAILY 06/29/23 05/03/24 atorvastatin 20 mg tablet 20 mg PO DAILY 06/29/23 05/03/24 albuterol sulfate 2.5 mg/3 mL See Rx Instructions .Route .COMPLEX 05/03/24 05/03/24 (0.083 %) solution for nebulization albuterol sulfate 90 mcg/actuation See Rx Instructions .Route .COMPLEX 05/03/24 05/03/24 aerosol inhaler escitalopram oxalate 10 mg tablet 10 mg PO DAILY 05/03/24 05/03/24 naltrexone 50 mg tablet 50 mg PO DAILY 05/03/24 05/03/24 Allergies Allergy/AdvReac Type Severity Reaction Status Date / Time codeine Allergy Intermediate Vomiting Verified 05/03/24 16:13 sulfamethoxazole Allergy Intermediate Hives / Verified 05/03/24 16:13 Red Face trimethoprim Allergy Intermediate Hives / Verified 05/03/24 16:13 Red Face levofloxacin Allergy Unknown Unknown Verified 05/03/24 16:13 hydrocodone AdvReac Intermediate vomiting Verified 05/03/24 16:13 NARCOTICS AdvReac Intermediate vomiting Uncoded 05/03/24 16:13 profusely Review of Systems Review of Systems: All systems reviewed & are unremarkable except as noted in HPI and below Constitutional: Constitutional: Reports no additional constitutional complaints, Reports lethargy, Reports malaise and Reports poor appetite Eyes: Eyes: Reports eye pain ENT: Reports system reviewed and no additional complaints, except as documented, Reports dry mouth and Reports otalgia Cardiovascular: Cardiovascular: Reports no additional cardiovascular complaints Respiratory: Respiratory: Reports no additional respiratory complaints and Reports cough Gastrointestinal: Gastrointestinal: Reports nausea and Reports vomiting Musculoskeletal: Musculoskeletal: Reports stiffness and Reports other (back pain) [facility] Past Medical History Medical History Anxiety Asthma Depression Endometriosis History of kidney stones Migraines Surgical History Surgical History H/O: hysterectomy Family History Family History Other Carcinoma of colon Diabetes mellitus Hypertension Social History Social History Smoking status: Heavy tobacco smoker Comments At the time of my signature, I reviewed and agree with the nursing past medical, surgical, social, and family history. There is no relevant family history pertinent to the patient complaint. Exam Const: General: cooperative, no acute distress, alert and awake Orientation/consciousness: oriented to person, oriented to place and oriented to time HENMT: Head: normal to inspection Mouth: Yes dry mucous membranes Throat: posterior oropharynx normal Eyes: General: appearance normal, both eyes and all related structures Chest: Chest palpation & inspection: normal inspection of the chest and normal palpation of entire chest wall
[2024-05-03] MEDS: ONDANSETRON HCL ODT 4 MG TABLET 8 MG PO (16:53)
== END 2024-05-03 17:07 | disposition short-term general hospital (02) ==
PROVIDERS: Emergency Provider Nurse Practitioner Family
DX: E86.0 Dehydration (principal); Z20.822 Contact with and (suspected) exposure to COVID-19; F17.200 Nicotine dependence, unspecified, uncomplicated; J45.909 Unspecified asthma, uncomplicated; F41.9 Anxiety disorder, unspecified; F32.A Depression, unspecified
CPT/HCPCS: 81003; 87426; 87804; 99213; A9270; G0463

== ENCOUNTER 2024-05-03 17:38 | Emergency (ER) | payer BC, SELFPAY ==
--- NOTE | ~2024-05-03 | CT_ITS ---
EXAMINATION: CT abdomen pelvis w con DATE: 05/03/2024 18:56 INDICATION: Left lower quadrant abdominal pain. Nausea, vomiting, and diarrhea. TECHNIQUE: Computed tomography (CT) of the abdomen and pelvis was performed with 100 mL Omnipaque 350 intravenous contrast. Automated exposure control and iterative reconstruction technique were employe d. The dose-length product was 319.87 mGy-cm. COMPARISON: CT abdomen and pelvis 09/03/2014 FINDINGS: The visualized portions of the lung bases demonstrate mild atelectasis. No pleural effusion . The heart size is normal. No pericardial effusion. There is a small sliding hiatal hernia. There is a 2.1 cm cyst in the liver. There is diffuse hepatic steatosis. The spleen, pancreas, adrenal glands , and right kidney are normal. There is a 5 mm cyst in left kidney. The bladder is distended. There a re no dilated loops of bowel. The appendix is normal. There are no pathologically enlarged lymph node s. There is no free intraperitoneal fluid. There is mild thoracic and lumbar spondylosis. There is mi ld chronic anterior wedging of T10-T12 vertebral bodies. IMPRESSION: 1. Small sliding hiatal hernia. Reviewed, dictated and finalized at location E.
[2024-05-03 17:41] VITALS: BP 140/95; PULSE 88; RESP 16; TEMP 37.3; O2SAT 98
[2024-05-03 17:57] LABS: Basophils Percent Auto 0.3 % (0.2-1.2); Eosinophils Percent Auto 0.3 % (0-4.4); Hematocrit 37.9 % (37.0-47.0); Hemoglobin 13.5 g/dL (12.0-15.0); Immature Granulocyte Absolute 0.01 K/mm3 (0.00-0.031); Immature Granulocyte Percent A 0.3 % (0-0.5); Lymphocytes Absolute Auto 0.57 K/mm3 (0.9-3.2); Lymphocytes Percent Auto 16.2 % (18.3-44.2); Mean Corpuscular HGB Conc 35.6 g/dl (32-36); Mean Corpuscular Hemoglobin 32.4 pg (26-34); Mean Corpuscular Volume 90.9 fl (80-100); Mean Platelet Volume 8.6 fl (7.4-10.4); Monocytes Absolute Auto 0.3 K/mm3 (0.1-0.6); Monocytes Percent Auto 9.7 % (2.6-8.5); Neutrophils Absolute Auto 2.6 K/mm3 (1.3-6.7); Neutrophils Percent Auto 73.2 % (45.5-73.1); Platelet Count Result 178 k/mm3 (150-375); Red Blood Count 4.17 M/mm3 (4.2-5.4); Red Cell Distribution Width 11.9 % (11.5-14.5); White Blood Count 3.5 K/mm3 (4.5-10.0)
[2024-05-03 18:13] LABS: Alanine Aminotransferase 95 U/L (6-35); Albumin Level 4.8 g/dL (3.5-5.1); Alkaline Phosphatase 117 U/L (38-126); Anion Gap 11 mmol/L (4-12); Aspartate Amino Transferase 123 U/L (14-36); Bilirubin,Total 0.7 mg/dL (0.2-1.3); Blood Urea Nitrogen 7 mg/dL (7-17); Calcium 8.6 mg/dL (8.4-10.2); Carbon Dioxide 23 mmol/L (22-30); Chloride 85 mmol/L (98-107); Estimated CRCL calculation 68 ml/min; Estimated Glomerular Filt Rate > 60; Glucose 93 mg/dL (65-110); Lipase 138 U/L (23-300); Potassium 4.1 mmol/L (3.4-5.0); Sodium 119 mmol/L (137-145)
[2024-05-03] MEDS: SODIUM CHLORIDE 0.9% IV 1,000 ML 999 ML IV CONT ×2 (18:21→19:29)
[2024-05-03 18:44] LABS: Lactic Acid Reflex 0.7 mmol/L (0.7-2.0)
[2024-05-03 19:14] LABS: Creatine Kinase 71 U/L (30-135); Magnesium 1.9 mg/dL (1.6-2.3)
--- NOTE | 2024-05-03 19:35 | ED.NAVMDI ---
HPI - Nausea/Vomiting/Diarrhea General Chief complaint: Nausea/Vomiting/Diarrhea Stated complaint: n/v Time Seen by Provider: 05/03/24 17:41 Source: patient Mode of arrival: ambulatory Limitations: no limitations History of Present Illness HPI Narrative: Patient is a 53-year-old female who presents the ED with report of nausea, vomiting, diarrhea. Patient reports having symptoms since night. Symptoms began after eating a [employer] taco, though she reports her daughter has had similar sx's. she reports multiple episodes of both vomiting and diarrhea. She has been able to keep down some water, but has not been drinking as much as she usually does. Reports intermittent lower abdominal pain. Reports fevers up to 101 degree F T-max. Denies rectal bleeding, melena, hematemesis, cough or cold symptoms. Related Data Home Medications Medication Instructions Recorded Confirmed clonazepam 2 mg tablet 2 mg PO DAILY 12/28/22 05/03/24 lamotrigine 200 mg tablet 200 mg PO DAILY 12/28/22 05/03/24 losartan 100 mg tablet 100 mg PO DAILY 12/28/22 05/03/24 amlodipine 5 mg tablet 5 mg PO DAILY 06/29/23 05/03/24 atorvastatin 20 mg tablet 20 mg PO DAILY 06/29/23 05/03/24 albuterol sulfate 2.5 mg/3 mL See Rx Instructions .Route .COMPLEX 05/03/24 05/03/24 (0.083 %) solution for nebulization albuterol sulfate 90 mcg/actuation See Rx Instructions .Route .COMPLEX 05/03/24 05/03/24 aerosol inhaler naltrexone 50 mg tablet 50 mg PO DAILY 05/03/24 05/03/24 Allergies Allergy/AdvReac Type Severity Reaction Status Date / Time codeine Allergy Intermediate Vomiting Verified 05/03/24 16:13 sulfamethoxazole Allergy Intermediate Hives / Verified 05/03/24 16:13 Red Face trimethoprim Allergy Intermediate Hives / Verified 05/03/24 16:13 Red Face levofloxacin Allergy Unknown Unknown Verified 05/03/24 16:13 hydrocodone AdvReac Intermediate vomiting Verified 05/03/24 16:13 NARCOTICS AdvReac Intermediate vomiting Uncoded 05/03/24 16:13 profusely Review of Systems Review of Systems: CONSTITUTIONAL: See HPI. CARDIOVASCULAR: Denies chest pain, palpitations, or edema. RESPIRATORY: Denies cough or dyspnea. GASTROINTESTINAL: see HPI. GENITOURINARY: Denies dysuria or hematuria. MUSCULOSKELETAL: Denies back pain, extremity pain, myalgia All systems reviewed & are unremarkable except as noted in HPI and below PMFSH Past Medical History Medical History Anxiety Asthma Depression Endometriosis History of kidney stones Migraines Surgical History Surgical History H/O: hysterectomy Family History Family History Other Carcinoma of colon Diabetes mellitus Hypertension Social History Social History Smoking status: Heavy tobacco smoker Alcohol intake: current Alcohol use details: 6-12pack per day Exam Narrative: GENERAL: Well appearing, well-nourished, non-toxic, in no acute distress. HEAD: Normocephalic, atraumatic. RESPIRATORY: Airway patent, respirations nonlabored. Clear to auscultation bilaterally, no rales, rhonchi, wheezing. CARDIOVASCULAR: Regular rate and rhythm ABDOMINAL: Soft, no significant tenderness throughout lower abdomen, nondistended. Normoactive BS. MUSCULOSKELETAL: Moves all extremities. No gross deformities. SKIN: Warm, dry, normal color. NEURO: A&O X3. Speech clear. PSYCHIATRIC: Appropriate mood and affect. Normal interaction. Course Vital Signs Vital signs: Vital Signs Temperature 99.1 F 05/03/24 17:41 Pulse Rate 88 05/03/24 17:41 Respiratory Rate 16 05/03/24 17:41 Blood Pressure 140/95 H 05/03/24 17:41 Pulse Oximetry 98 05/03/24 17:41 Oxygen Delivery Room Air 05/03/24 17:41 Temperature 99.1 F 04/06
[2024-05-03 19:36] LABS: Appearance Urine Clear (Clear); Bilirubin Urine Negative (Negative); Blood Urine Negative (Negative); Color Urine Yellow (Yellow); Glucose Urine UA Negative (Negative); Ketones Urine Trace mg/dL (Negative); Leukocyte Esterase Ur Negative LEU/UL (Negative); Nitrate Urine Negative (Negative); Protein Urine Negative (Negative); Specific Grav Ur 1.014 (1.001-1.035); Urobilinogen Urine 0.2 mg/dL (<2.0)
[2024-05-03 19:38] LABS: Add Urine Microscopic? NO
[2024-05-03 20:52] LABS: Anion Gap 10 mmol/L (4-12); Blood Urea Nitrogen 6 mg/dL (7-17); Calcium 8.1 mg/dL (8.4-10.2); Carbon Dioxide 22 mmol/L (22-30); Chloride 93 mmol/L (98-107); Estimated CRCL calculation 68 ml/min; Estimated Glomerular Filt Rate > 60; Glucose 89 mg/dL (65-110); Sodium 125 mmol/L (137-145)
== END 2024-05-03 21:27 | disposition home or self-care (01) ==
PROVIDERS: Emergency Provider Physician Assistant
DX: K52.9 Noninfective gastroenteritis and colitis, unspecified (principal); F10.90 Alcohol use, unspecified, uncomplicated; Y90.9 Presence of alcohol in blood, level not specified; E87.1 Hypo-osmolality and hyponatremia; R74.01 Elevation of levels of liver transaminase levels; J45.909 Unspecified asthma, uncomplicated; F41.9 Anxiety disorder, unspecified; F32.A Depression, unspecified; F17.200 Nicotine dependence, unspecified, uncomplicated; Z87.442 Personal history of urinary calculi; Z90.710 Acquired absence of both cervix and uterus; Z79.899 Other long term (current) drug therapy; K44.9 Diaphragmatic hernia without obstruction or gangrene
CPT/HCPCS: 36415; 74177; 80048; 80053; 81003; 82550; 83605; 83690; 83735; 85025; 87426; 87804; 96360; 96361; 99284; A9270; J7030; Q9967

== ENCOUNTER 2024-05-05 10:57 | Inpatient (IN) | payer BC, SELFPAY ==
[2024-05-05] VITALS (10 sets, daily range): BP systolic 102–121; BP diastolic 62–76; PULSE 69–90; RESP 14–29; TEMP 36.6–36.7; O2SAT 94–100; BMI 27.1; BMI 26.4
--- NOTE | ~2024-05-05 | US_ITS ---
COMPLETE ABDOMINAL ULTRASOUND Ordering provider: Iman Luciano PA-C History: . elevated LFTs . Comparison: None. FINDINGS: LIVER: Normal size and echotexture. No focal hepatic lesions or perihepatic fluid collections are jose ramon ntified. The liver measures 19.2 cm. Cyst is seen measuring 2.4 x 1.2 x 2.4 cm. Portal vein flow is normal. GALLBLADDER: Contracted. Wall thickness is 2.3 mm. A negative sonographic Costello's sign was noted. BILIARY DUCTS: No evidence for intra or extrahepatic biliary dilation. Common bile duct measures 3.5 mm in diameter which is within normal limits. PANCREAS: Normal echotexture and size. KIDNEYS: Right measures 10.7x 4.6x 4.5 cm in length . There is no evidence for hydronephrosis, solid renal mass, renal calculi or perinephric fluid collections. No renal cysts. UPPER ABDOMINAL AORTA: Normal in caliber. IVC: Patent. FREE FLUID: None. IMPRESSION: Hepatomegaly. Cyst in the right lobe of the liver. Otherwise Unremarkable limited ultrasound of the a bdomen. Reviewed, dictated and finalized at location A. IMPRESSION: Hepatomegaly. Cyst in the right lobe of the liver. Otherwise Unremarkable limit ed ultrasound of the abdomen.
[2024-05-05 11:37] LABS: Basophils Percent Auto 0.3 % (0.2-1.2); Eosinophils Percent Auto 0.5 % (0-4.4); Hematocrit 36.1 % (37.0-47.0); Immature Granulocyte Absolute 0.02 K/mm3 (0.00-0.031); Immature Granulocyte Percent A 0.5 % (0-0.5); Lymphocytes Absolute Auto 0.91 K/mm3 (0.9-3.2); Mean Corpuscular Hemoglobin 32.3 pg (26-34); Mean Corpuscular Volume 89.8 fl (80-100); Mean Platelet Volume 9.2 fl (7.4-10.4); Monocytes Absolute Auto 0.3 K/mm3 (0.1-0.6); Monocytes Percent Auto 6.9 % (2.6-8.5); Neutrophils Absolute Auto 2.4 K/mm3 (1.3-6.7); Neutrophils Percent Auto 66.8 % (45.5-73.1); Platelet Count Result 145 k/mm3 (150-375); Red Blood Count 4.02 M/mm3 (4.2-5.4); Red Cell Distribution Width 11.8 % (11.5-14.5); White Blood Count 3.6 K/mm3 (4.5-10.0)
[2024-05-05] MEDS: SODIUM CHLORIDE 0.9% IV 1,000 ML 999 ML IV CONT (11:51)
[2024-05-05 11:52] LABS: Alanine Aminotransferase 83 U/L (6-35); Albumin Level 4.4 g/dL (3.5-5.1); Alkaline Phosphatase 81 U/L (38-126); Anion Gap 11 mmol/L (4-12); Aspartate Amino Transferase 120 U/L (14-36); Bilirubin,Total 0.7 mg/dL (0.2-1.3); Blood Urea Nitrogen 8 mg/dL (7-17); Carbon Dioxide 21 mmol/L (22-30); Chloride 84 mmol/L (98-107); Estimated CRCL calculation 54 ml/min; Estimated Glomerular Filt Rate > 60; Glucose 129 mg/dL (65-110); Lipase 154 U/L (23-300); Potassium 2.9 mmol/L (3.4-5.0); Sodium 116 mmol/L (137-145)
[2024-05-05 12:22] LABS: Appearance Urine Clear (Clear); Bacteria Urine None Seen /hpf; Bilirubin Urine Negative (Negative); Blood Urine Trace (Negative); Color Urine Yellow (Yellow); Glucose Urine UA Negative (Negative); Ketones Urine Negative (Negative); Leukocyte Esterase Ur Negative LEU/UL (Negative); Nitrate Urine Negative (Negative); Non Pathogenic Casts 0-2; Protein Urine Trace mg/dL (Negative); RBC Urine 0-2 /hpf (0-2); Specific Grav Ur 1.008 (1.001-1.035); Squamous Epithelial Cell Urine None Seen /hpf (Few); Urobilinogen Urine 0.2 mg/dL (<2.0); WBC Urine 0-5 /hpf (0-3); pH Urine 6.5 (5.0-9.0)
[2024-05-05 12:30] LABS: Add Urine Microscopic? YES
[2024-05-05] MEDS: SODIUM CHLORIDE 0.9% IV 2,000 ML 999 ML IV CONT (13:02)
[2024-05-05] MEDS: FAMOTIDINE 20 MG/2 ML VIAL IV PUSH (13:02)
[2024-05-05] MEDS: ONDANSETRON INJ 4 MG/2 ML VIAL IV PUSH ×2 (13:02→21:46)
[2024-05-05] MEDS: MAGNESIUM SULF 2 GM/WATER 50ML 2 GM/50 ML BAG IVPB (13:03)
[2024-05-05] MEDS: POTASSIUM CHLORIDE 20 MEQ PACKET (FOR LIQUID) 40 MEQ PO (13:03)
[2024-05-05] MEDS: POTASSIUM CHLORIDE INJ 40 MEQ in SODIUM CHLORIDE 0.9% IV 500 ML 130 MEQ IVPB (13:05)
--- NOTE | 2024-05-05 13:53 | ED.GENADULT ---
HPI - General Adult General Chief complaint: Nausea/Vomiting/Diarrhea Stated complaint: N/V/D Time Seen by Provider: 05/05/24 12:06 History of Present Illness HPI narrative: This is a 53-year-old female presenting with 5 days of n/v/d. Symptoms started last . Patient is having 5+ episodes of nonbloody diarrhea per day. Additionally she feels weak and tired. No fevers chills chest pain difficulty breathing or abdominal pain. Patient was seen in the emergency department after her initial onset of symptoms was diagnosed with gastroenteritis and several electrolyte abnormalities including chronic hyponatremia. Patient is a daily beer drinker but has not drank since last . Related Data Home Medications Medication Instructions Recorded Confirmed clonazepam 2 mg tablet 2 mg PO DAILY 12/28/22 05/03/24 lamotrigine 200 mg tablet 200 mg PO DAILY 12/28/22 05/03/24 losartan 100 mg tablet 100 mg PO DAILY 12/28/22 05/03/24 amlodipine 5 mg tablet 5 mg PO DAILY 06/29/23 05/03/24 atorvastatin 20 mg tablet 20 mg PO DAILY 06/29/23 05/03/24 albuterol sulfate 2.5 mg/3 mL See Rx Instructions .Route .COMPLEX 05/03/24 05/03/24 (0.083 %) solution for nebulization albuterol sulfate 90 mcg/actuation See Rx Instructions .Route .COMPLEX 05/03/24 05/03/24 aerosol inhaler naltrexone 50 mg tablet 50 mg PO DAILY 05/03/24 05/03/24 Allergies Allergy/AdvReac Type Severity Reaction Status Date / Time codeine Allergy Intermediate Vomiting Verified 05/03/24 16:13 sulfamethoxazole Allergy Intermediate Hives / Verified 05/03/24 16:13 Red Face trimethoprim Allergy Intermediate Hives / Verified 05/03/24 16:13 Red Face levofloxacin Allergy Unknown Unknown Verified 05/03/24 16:13 hydrocodone AdvReac Intermediate vomiting Verified 05/03/24 16:13 NARCOTICS AdvReac Intermediate vomiting Uncoded 05/03/24 16:13 profusely PMFSH Past Medical History Medical History (Updated 05/05/24 @ 17:22 by Tashi Pino MD) Anxiety Asthma Depression Endometriosis ETOH abuse History of kidney stones Migraines Surgical History Surgical History H/O: hysterectomy Family History Family History Other Carcinoma of colon Diabetes mellitus Hypertension Social History Social History Smoking status: Heavy tobacco smoker Alcohol intake: current Alcohol use details: 6-12pack per day Exam Narrative: APPEARANCE: No apparent distress. Head: atraumatic. EYES: EOMI, NOSE: Atraumatic NECK: Trachea midline RESPIRATORY: No increased rate of breathing Clear to auscultation CARDIOVASCULAR: RRR, no peripheral ABDOMINAL: Non-distended soft, nontender, no guarding, rebound MUSCULOSKELETAl: No obvious deformities NEURO: Alert. Moving 4/4 extremities SKIN:: Warm, dry. Normal color PSYCHIATRIC: Normal affect Course Vital Signs Vital signs: Vital Signs Temperature 98.0 F 05/05/24 11:19 Pulse Rate 80 05/05/24 11:19 Respiratory Rate 14 05/05/24 11:19 Pulse Oximetry 100 05/05/24 11:19 Oxygen Delivery Room Air 05/05/24 11:19 Temperature 98.0 F 05/05/24 11:19 Pulse Rate 90 05/05/24 14:52 Respiratory Rate 18 05/05/24 14:52 Blood Pressure 108/66 05/05/24 14:52 Pulse Oximetry 98 05/05/24 14:52 Oxygen Delivery Room Air 05/05/24 11:19 Medical Decision Making [facility] Narrative Medical decision making narrative: -Course: This is a 53-year-old female history of alcohol use disorder and chronic hyponatremia presenting with 5 days of diarrhea. Laboratory studies showed acute on chronic hyponatremia with a sodium of 116, potassium 2.9 and chloride of 84. Patient given fluid resuscitation and electrolyte repletion with some improvement. However given her severe electrolyte abnormalities I believe admission is warranted.
[2024-05-05 17:52] LABS: Amphetamine Screen Urine Negative (Negative); Barbiturate Screen Urine Negative (Negative); Benzodiazepines Screen Urine Negative (Negative); Cannabinoid Screen Urine Negative (Negative); Cocaine Screen Urine Negative (Negative); Methadone Screen Urine Negative (Negative); Opiate Screen Urine Negative (Negative); Phencyclidine Screen Urine Negative (Negative)
[2024-05-05 18:02] LABS: Ethanol < 10 mg/dL (<10)
[2024-05-05 18:03] LABS: Anion Gap 9 mmol/L (4-12); Blood Urea Nitrogen 4 mg/dL (7-17); Calcium 7.8 mg/dL (8.4-10.2); Carbon Dioxide 18 mmol/L (22-30); Chloride 102 mmol/L (98-107); Estimated CRCL calculation 68 ml/min; Estimated Glomerular Filt Rate > 60; Glucose 103 mg/dL (65-110); Potassium 4.2 mmol/L (3.4-5.0); Sodium 129 mmol/L (137-145)
--- NOTE | 2024-05-05 18:50 | PC.NURSE ---
This patient, Nabila Khan, was admitted to IMU Room 204-01. Patient/family oriented to hospital policies and general routines including ID bracelet, bed and alarms, visiting hours, pain management, procedures, bathroom and other care routines, personal items, smoking policy, room service/diet, and visiting hours. Information on how to activate the Rapid Response Team has been discussed. Patient/Family are encouraged to report perceived risks to care and to ask questions if they do not understand what they are told or what they should do.
[2024-05-05] MEDS: DESMOPRESSIN ACETATE 4 MCG/ML AMP 2 MCG SUB-Q (19:09)
[2024-05-05] MEDS: DEXTROSE 5% IN WATER 500 ML 200 ML IV CONT (19:10)
--- NOTE | 2024-05-05 19:37 | PM.IMHP ---
H&P: HPI History of Present Illness Date/Time: 05/05/24 19:00 Chief Complaint: Diarrhea, weakness. Narrative: This is a pleasant 53-year-old female with history of hypertension, hyperlipidemia, depression, anxiety, and alcohol abuse who presented to the emergency department for evaluation of diarrhea and weakness. The patient provides the following history. She and her daughter ate at [employer] on evening and not long thereafter they both developed nausea, vomiting, and loose stools. Daughter has improved however the patient continues to have symptoms. Sunday she developed lower abdominal discomfort and a fever to 103? F and she was seen in the ED that evening. Workup at that time was significant for a sodium of 119, chloride 85, mild transaminitis, and a CT scan showing a hiatal hernia. She received 2 L of normal saline and she felt much better thereafter. The patient did not want to stay in the hospital and a repeat BMP showed that her sodium had improved to 125 and she was discharged home. With further questioning, the patient reports that her sodium level is always low (in the mid to upper 120s) and in fact she had previously been seen by a grinder set up operator internal affiliated with [facility] who told her to restrict her fluid intake to 48 oz a day. That was 2 years ago however and she no longer fluid restricts. In any event, her vomiting has slowed down however she continues to have diarrhea in increasing volume. She has had too numerous to count episodes of diarrhea in the past 24 hours which he describes as watery, yellow stool. She is feeling weak and fatigued. She does feel a bit ?cloudy? and has noted that she seems to be a bit confused. The patient also complains of a headache. She has not had much to eat or drink in the last several days but has been trying to stay hydrated with Gatorade. She has not had any alcohol since and tells me that she typically drinks 6 to 8 cans of beer a day, sometimes up to 12. She has never had signs or symptoms of alcohol withdrawal when not drinking. She denies tremors, sweats, and hallucinations at this time. She also denies vertigo, focal weakness, chest pain, shortness of breath, abdominal pain, hematemesis, melena, and hematochezia. In the ED: She was afebrile on arrival with stable blood pressures. Labs were significant for a WBC count of 3.6, hemoglobin 13.0, platelet 145, sodium 116, potassium 2.6, chloride 84, carbon dioxide 21, BUN 8, creatinine 0.90, glucose 129, calcium 8.0, AST 120, ALT 83, lipase 154. Urinalysis was unremarkable. Urine drug screen was negative. Ethyl alcohol level was less than 10. In the ED she was given a 3 L saline bolus, 2 g magnesium, and 40 mEq of potassium chloride. Repeat BMP this evening showed a sodium of 129 and she was given 2 mcg subQ DDAVP and has been started on D5 water after conferring with grinder set up operator internal, Dr. Kessler. She is being admitted in this setting for close monitoring. Review of Systems Review of Systems: 12 systems were reviewed and are negative except for as per HPI. [facility] Past Medical History Medical History (Updated 05/05/24 @ 21:44 by Iman Luciano PA-C) Alcohol abuse Anxiety Asthma Depression Endometriosis Hyperlipidemia Hypertension Kidney stones Migraines Surgical History Surgical History (Updated 05/05/24 @ 21:44 by Iman Luciano PA-C) History of hysterectomy Family History Family History (Updated 05/05/24 @ 20:00 by Randy Jenkins RN) Grandparent Carcinoma of colon Father Diabetes mellitus Hypertension Mother Hypertension Sibling Hypertension Social History Social History (Updated 05/05/24 @ 21:45 by Iman Luciano PA-C) Social History: Surrogate medical decision maker: Starr Khan, daughter. Code status: Full code. Smoking packs per day: 1 Smoking cigarettes per day: 20.0 Years smoked: 30 Smoking pack-years: 30.00 Smoking status: Current every day smok
--- NOTE | 2024-05-05 20:59 | ECG_ITS ---
Test Date: 2024-05-05 21:06:43 Measurements Intervals [place] Rate: 75 P: 51 OK: 196 QRS: 86 QRSD: 98 T: 33 QT: 355 QTc: 398 Interpretive Statements SINUS RHYTHM INCOMPLETE RIGHT BUNDLE BRANCH BLOCK ST DEVIATION AND MODERATE T-WAVE ABNORMALITY, CONSIDER ANTERIOR ISCHEMIA BASELINE ARTIFACT- I, II, III, AVR, AVL, AVF, V4-V6 ABNORMAL ECG No previous ECG available for comparison Electronically Signed On 05-06-2024 06:19:15 CDT by James Hill D.O.
[2024-05-05] MEDS: chlordiazePOXIDE (*CRX) 10 MG CAPSULE PO (23:43)
[2024-05-05] MEDS: THIAMINE HCL 200 MG/2 ML VIAL 100 MG IV PUSH (23:44)
[2024-05-05 23:51] LABS: Anion Gap 6 mmol/L (4-12); Blood Urea Nitrogen 3 mg/dL (7-17); Calcium 7.7 mg/dL (8.4-10.2); Carbon Dioxide 19 mmol/L (22-30); Chloride 95 mmol/L (98-107); Estimated CRCL calculation 77 ml/min; Estimated Glomerular Filt Rate > 60; Glucose 87 mg/dL (65-110); Potassium 3.9 mmol/L (3.4-5.0); Prothrombin Time 14.1 Seconds (11.1-14.7); Sodium 120 mmol/L (137-145)
[2024-05-06] VITALS (20 sets, daily range): BP systolic 105–136; BP diastolic 59–96; PULSE 65–82; RESP 18–28; TEMP 37.2–38.8; O2SAT 90–97
--- NOTE | 2024-05-06 | ECHO_ITS ---
Patient Info Name: Nabila Khan Age: 53 years : 1970 Gender: Female Ht: 64 in Wt: 158 lbs BSA: 1.82 m2 HR: 69 bpm BP: 105 / 59 mmHg Heart Rhythm: Sinus Rhythm Technical Quality: Fair Exam Date: 05/06/2024 9:02 AM Exam Location: Echo Lab Patient Status: Outpatient Admit Date: 05/05/2024 Staff Ordering Physician: Iman Luciano PA-C [place]: Ami Light RDCS Attending Provider: Christiano Doss MD Referring Physician: Ankita VIEIRA; Exam Type: CA echo dop color flow w con Study Info Indications - EKG changed, HTN, HLD Complete two-dimensional, color flow and Doppler transthoracic echocardiogram is performed with contrast to opacify the left ventricle and to improve the deliniation of the left ventricle endocardial borders. Contrast/Agitated Saline Contrast/Ag. Saline: Definity Amount: 2.00 ml Administered By: Ami Light RDCS Existing IV Access: Yes IV Access Condition: patent with no signs of infiltration Summary 1. Left ventricular chamber dimension is normal. 2. Left ventricular systolic function is normal, estimated at 65-70%. 3. Right ventricular systolic function is normal. 4. No significant valvular disease. Left Ventricle Left ventricular chamber dimension is normal. Left ventricular systolic function is normal, estimated at 65-70%. There is no increased left ventricular wall thickness. The left ventricular diastolic function is normal. Right Ventricle Right ventricular chamber dimension is normal. Right ventricular systolic function is normal. Left Atria Left atrial chamber dimension is normal. Right Atria Right atrial chamber dimension is normal. Atrial Septum Intact interatrial septum visualized by color flow imaging. Aortic Valve The aortic valve is probable trileaflet. There is no aortic valve stenosis. There is no aortic valve regurgitation. There is mild aortic valve calcification. Pulmonic Valve The pulmonic valve is not well visualized. Mitral Valve There is trace mitral valve regurgitation. Tricuspid Valve There is trace tricuspid valve regurgitation. Pericardium/Pleural There is no pericardial effusion. Inferior Vena Cava Normal inferior vena cava with >50% collapse upon inspiration consistent with normal right atrial pressure, 3 mmHg. Aorta The aortic root size at the sinus of Valsalva is normal. Left Ventricular Outflow Tract Name Value Normal LVOT 2D LVOT Diameter 1.98 cm LVOT Doppler LVOT Peak Gradient 11 mmHg LVOT Mean Gradient 5 mmHg LVOT VTI 23.84 cm LVOT VTI/AV VTI Ratio 0.85 LVOT Stroke Volume 73.09 ml LVOT CO 5.21 l/min LVOT CI 2.87 L/min/m2 Pulmonic Valve Name Value Normal RVOT Doppler RVOT Peak
[2024-05-06] MEDS: ACETAMINOPHEN 325 MG TABLET 650 MG PO ×2 (00:53→17:22)
[2024-05-06 04:39] LABS: Hematocrit 34.6 % (37.0-47.0); Hemoglobin 12.4 g/dL (12.0-15.0); Mean Corpuscular HGB Conc 35.8 g/dl (32-36); Mean Corpuscular Hemoglobin 32.5 pg (26-34); Mean Corpuscular Volume 90.6 fl (80-100); Mean Platelet Volume 9.6 fl (7.4-10.4); Platelet Count Result 154 k/mm3 (150-375); Red Blood Count 3.82 M/mm3 (4.2-5.4); White Blood Count 3.9 K/mm3 (4.5-10.0)
[2024-05-06 05:03] LABS: Alanine Aminotransferase 75 U/L (6-35); Albumin Level 3.6 g/dL (3.5-5.1); Alkaline Phosphatase 77 U/L (38-126); Anion Gap 8 mmol/L (4-12); Aspartate Amino Transferase 96 U/L (14-36); Bilirubin,Total 0.6 mg/dL (0.2-1.3); Blood Urea Nitrogen 3 mg/dL (7-17); Calcium 7.7 mg/dL (8.4-10.2); Carbon Dioxide 16 mmol/L (22-30); Chloride 95 mmol/L (98-107); Estimated CRCL calculation 89 ml/min; Estimated Glomerular Filt Rate > 60; Glucose 88 mg/dL (65-110); Magnesium 2.1 mg/dL (1.6-2.3); Potassium 3.4 mmol/L (3.4-5.0); Sodium 119 mmol/L (137-145)
[2024-05-06 05:37] LABS: Toxigenic C. Diff NEGATIVE (NEGATIVE)
[2024-05-06] MEDS: AZITHROMYCIN 250 MG TABLET 500 MG PO (06:52)
[2024-05-06 08:30] LABS: Anion Gap 10 mmol/L (4-12); Blood Urea Nitrogen 3 mg/dL (7-17); Calcium 7.8 mg/dL (8.4-10.2); Carbon Dioxide 17 mmol/L (22-30); Chloride 94 mmol/L (98-107); Estimated CRCL calculation 89 ml/min; Estimated Glomerular Filt Rate > 60; Glucose 87 mg/dL (65-110); Potassium 3.5 mmol/L (3.4-5.0); Sodium 121 mmol/L (137-145)
[2024-05-06] MEDS: THIAMINE HCL 100 MG TABLET PO (08:32)
[2024-05-06] MEDS: ONDANSETRON INJ 4 MG/2 ML VIAL IV PUSH (08:32)
[2024-05-06] MEDS: FOLIC ACID 1 MG TABLET PO (08:32)
[2024-05-06] MEDS: chlordiazePOXIDE (*CRX) 10 MG CAPSULE PO (08:33)
--- NOTE | 2024-05-06 08:47 | ECG_ITS ---
Test Date: 2024-05-06 10:49:58 Measurements Intervals [place] Rate: 75 P: 52 HI: 179 QRS: 85 QRSD: 101 T: 35 QT: 377 QTc: 422 Interpretive Statements SINUS RHYTHM LOW QRS VOLTAGE IN PRECORDIAL LEADS INCOMPLETE RIGHT BUNDLE BRANCH BLOCK BORDERLINE T WAVE ABNORMALITY- ANTERIOR LEADS BASELINE ARTIFACT- I, II, III, AVR, AVL, AVF, V1-V6 BORDERLINE ECG Compared to ECG 05/05/2024 21:06:[address]-T WAVE CHANGES Electronically Signed On 05-06-2024 11:46:57 CDT by James Hill D.O.
[2024-05-06] MEDS: PERFLUTREN LIPID MICROSPHERES 1.5 ML VIAL DILUTED TO 10 ML TOTAL VOLUME IV PUSH (09:38)
--- NOTE | 2024-05-06 11:23 | IVDEFINITY ---
Prior to administration of IV Definity the patient was educated on the risks and benefits of the imaging enhancing agent including potential adverse side effects. The patient verbalized understanding. Allergies were verified. No exclusion criteria were identified and at least one of the following inclusion criteria were met: 1) physician request, 2) patient technically difficult to image (per the [place] [employer] guidelines of two or more segments not discernable within the apical view), or 3) questionable left ventricular function. ?
[2024-05-06] MEDS: SODIUM CHLORIDE 0.9% IV 1,000 ML 75 ML IV CONT (12:10)
[2024-05-06 12:44] LABS: Sodium 118 mmol/L (137-145)
[2024-05-06 14:42] LABS: Creatinine Urine 82.3 mg/dL; Total Protein Urine Random 34 mg/dL; Ur Ttl Prot Creatinine Ratio 0.41 mg/mg (0-0.20); Urea Random Urine 375 MG/DL
[2024-05-06 14:44] LABS: Sodium Urine Random 126 meq/L
--- NOTE | 2024-05-06 15:33 | PM.IMPN ---
Progress Note: A&P Assessment and Plan (1) Hyponatremia: Code(s): E87.1 - Hypo-osmolality and hyponatremia Status: Acute (2) Gastroenteritis: Code(s): K52.9 - Noninfective gastroenteritis and colitis, unspecified Status: Acute (3) Alcohol abuse: Code(s): F10.10 - Alcohol abuse, uncomplicated Status: Acute (4) Hypokalemia: Code(s): E87.6 - Hypokalemia Status: Acute (5) Transaminitis: Code(s): R74.01 - Elevation of levels of liver transaminase levels Status: Acute (6) Hypertension: Code(s): I10 - Essential (primary) hypertension Status: Acute (7) Hyperlipidemia: Code(s): E78.5 - Hyperlipidemia, unspecified Status: Acute Plan This is a pleasant 53-year-old female with history of hypertension, hyperlipidemia, depression, anxiety, and alcohol abuse who presented to the emergency department for evaluation of diarrhea and weakness. She and her daughter ate at [employer] on evening and not long thereafter they both developed nausea, vomiting, and loose stools. Daughter has improved however the patient continues to have symptoms. Sunday she developed lower abdominal discomfort and a fever to 103? F and she was seen in the ED that evening. Workup at that time was significant for a sodium of 119, chloride 85, mild transaminitis, and a CT scan showing a hiatal hernia. She received 2 L of normal saline and she felt much better thereafter. The patient did not want to stay in the hospital and a repeat BMP showed that her sodium had improved to 125 and she was discharged home. With further questioning, the patient reports that her sodium level is always low (in the mid to upper 120s) and in fact she had previously been seen by a poker prop player affiliated with [facility] who told her to restrict her fluid intake to 48 oz a day. That was 2 years ago however and she no longer fluid restricts. In any event, her vomiting has slowed down however she continues to have diarrhea in increasing volume. She has had too numerous to count episodes of diarrhea in the past 24 hours which he describes as watery, yellow stool. She is feeling weak and fatigued. She does feel a bit ?cloudy? and has noted that she seems to be a bit confused. The patient also complains of a headache. She has not had much to eat or drink in the last several days but has been trying to stay hydrated with Gatorade. She has not had any alcohol since and tells me that she typically drinks 6 to 8 cans of beer a day, sometimes up to 12. She has never had signs or symptoms of alcohol withdrawal when not drinking. She denies tremors, sweats, and hallucinations at this time. She also denies vertigo, focal weakness, chest pain, shortness of breath, abdominal pain, hematemesis, melena, and hematochezia. In the ED: She was afebrile on arrival with stable blood pressures. Labs were significant for a WBC count of 3.6, hemoglobin 13.0, platelet 145, sodium 116, potassium 2.6, chloride 84, carbon dioxide 21, BUN 8, creatinine 0.90, glucose 129, calcium 8.0, AST 120, ALT 83, lipase 154. Urinalysis was unremarkable. Urine drug screen was negative. Ethyl alcohol level was less than 10. In the ED she was given a 3 L saline bolus, 2 g magnesium, and 40 mEq of potassium chloride. Repeat BMP in the evening showed a sodium of 129 and she was given 2 mcg subQ DDAVP and has been started on D5 water after conferring with poker prop player, Dr. Kessler. She is being admitted in this setting for close monitoring. Acute on chronic hyponatremia corrected too rapidly with normal saline. Treated with DDAVP and D5 water. Nephrology has been consulted and further treatment per Nephrology recommendations. Will hold Lamictal due to hyponatremia Anxiety disorder on clonazepam which will be resumed acute gastroenteritis, possibly viral though cannot rule out food-borne illness as she and her daughter both got sick after eating at [employer]
--- NOTE | 2024-05-06 16:30 | P.CONNP_ITS ---
Assessment and Plan Assessment and plan (1) Hyponatremia: Code(s): E87.1 - Hypo-osmolality and hyponatremia Status: Acute Assessment and Plan: * acute on chronic * reported runs in the mid to high 120s at baseline * will attempt to get outside records regarding her sodium history * risk factors for low sodium at this time: * pre-renal factors (nausea/vomiting/diarrhea) * medications (Lamictal) * excessive fluid/free water intake * alcohol abuse * smoking * evidence of overcorrection last night * sodium correction slowed down with DDAVP and D5W IVFs * goal of therapy is a rate of change of 6 - 8mmol/L in 24 hours * hold Lamictal * check TSH, cortisol, serum/urine osmolality, and SPEP/UPEP as well as urine electrolytes * follow trend of repeat sodium levels (2) Gastroenteritis: Code(s): K52.9 - Noninfective gastroenteritis and colitis, unspecified Status: Acute Assessment and Plan: * presumably viral or food related * stool studies noted * PRN antiemetics and antimotility agents for now * previous CT of abdomen did not show any intra-abdominal pathology * continue supporticve therapy (3) Hypokalemia: Code(s): E87.6 - Hypokalemia Status: Acute Assessment and Plan: * related to GI losses and low magneosium * replace as needed * follow trend of K+ (4) Hypertension: Code(s): I10 - Essential (primary) hypertension Status: Chronic Assessment and Plan: * reasonable control * BP medications with parameters * follow trend of hemodynamics (5) Alcohol abuse: Code(s): F10.10 - Alcohol abuse, uncomplicated Status: Chronic Assessment and Plan: * known extensive history * no reported issues with withdrawal in the past * [facility] protocol in place I will continue to follow the patient with you while she remains hospitalized and make further recommendations as deemed necessary Thank you for allowing me to participate in care this patient. History of Present Illness Reason for Consult Consult date: 05/06/24 Reason for consult: hyponatremia (acute on chronic) Chief Complaint Chief complaint: Hyponatremia History of Present Illness Narrative: The patient is a 53-year-old female with a past medical history as outlined below who presented to [facility] Emergency Room for further evaluation of diarrhea and associated weakness. According to the patient, she and her daughter had fast food last evening and not long after that, they both developed nausea, vomiting, and loose stools. However, her daughter seem to improve after 24 hours but the patient continued to have these ongoing symptoms. on Sunday, the patient developed lower abdominal discomfort in association with a fever of 103?. She was apparently seen at [facility] that day and it was noted that she had a sodium of 119mmol/L in association with mildly elevated LFTs along with a CT scan that was only significant for hiatal hernia. She received 2 L of normal saline and felt significantly better afterwards and a repeat BMP demonstrated her sodium level had improved to 125 millimoles per L. as the patient did not want to stay in the hospital and she clinically was better, she was discharged home. Her nausea and vomiting slow down after she returned home however she continued to have diarrhea with increasing volume of stools. In the last 24 hours prior to her repeat presentation to the emergency room, she has had innumerable episodes of diarrhea that she describes as watery yellow
--- NOTE | 2024-05-06 16:30 | PM.CNNEP ---
Assessment and Plan Assessment and plan (1) Hyponatremia: Code(s): E87.1 - Hypo-osmolality and hyponatremia Status: Acute Assessment and Plan: acute on chronic reported runs in the mid to high 120s at baseline will attempt to get outside records regarding her sodium history risk factors for low sodium at this time: pre-renal factors (nausea/vomiting/diarrhea) medications (Lamictal) excessive fluid/free water intake alcohol abuse smoking evidence of overcorrection last night sodium correction slowed down with DDAVP and D5W IVFs goal of therapy is a rate of change of 6 - 8mmol/L in 24 hours hold Lamictal check TSH, cortisol, serum/urine osmolality, and SPEP/UPEP as well as urine electrolytes follow trend of repeat sodium levels (2) Gastroenteritis: Code(s): K52.9 - Noninfective gastroenteritis and colitis, unspecified Status: Acute Assessment and Plan: presumably viral or food related stool studies noted PRN antiemetics and antimotility agents for now previous CT of abdomen did not show any intra-abdominal pathology continue supporticve therapy (3) Hypokalemia: Code(s): E87.6 - Hypokalemia Status: Acute Assessment and Plan: related to GI losses and low magneosium replace as needed follow trend of K+ (4) Hypertension: Code(s): I10 - Essential (primary) hypertension Status: Chronic Assessment and Plan: reasonable control BP medications with parameters follow trend of hemodynamics (5) Alcohol abuse: Code(s): F10.10 - Alcohol abuse, uncomplicated Status: Chronic Assessment and Plan: known extensive history no reported issues with withdrawal in the past [facility] protocol in place I will continue to follow the patient with you while she remains hospitalized and make further recommendations as deemed necessary Thank you for allowing me to participate in care this patient. History of Present Illness Reason for Consult Consult date: 05/06/24 Reason for consult: hyponatremia (acute on chronic) Chief Complaint Chief complaint: Hyponatremia History of Present Illness Narrative: The patient is a 53-year-old female with a past medical history as outlined below who presented to [facility] Emergency Room for further evaluation of diarrhea and associated weakness. According to the patient, she and her daughter had fast food last evening and not long after that, they both developed nausea, vomiting, and loose stools. However, her daughter seem to improve after 24 hours but the patient continued to have these ongoing symptoms. on Sunday, the patient developed lower abdominal discomfort in association with a fever of 103?. She was apparently seen at [facility] that day and it was noted that she had a sodium of 119mmol/L in association with mildly elevated LFTs along with a CT scan that was only significant for hiatal hernia. She received 2 L of normal saline and felt significantly better afterwards and a repeat BMP demonstrated her sodium level had improved to 125 millimoles per L. as the patient did not want to stay in the hospital and she clinically was better, she was discharged home. Her nausea and vomiting slow down after she returned home however she continued to have diarrhea with increasing volume of stools. In the last 24 hours prior to her repeat presentation to the emergency room, she has had innumerable episodes of diarrhea that she describes as watery yellow stool. given her worsening diarrhea, she has also noted worsening fatigue and generalized weakness as well as the fact that she feels cloudy and in terms of her mentation. Her family including her also note that she seems a bit confused in comparison to her normal baseline. Given the ongoing diarrhea for last 24 hours prior to presentation along with her symptoms in the past week, she has not been a
[2024-05-06 17:19] LABS: Sodium 116 mmol/L (137-145)
[2024-05-06] MEDS: clonazePAM (*CRX) 0.5 MG TABLET 1 MG PO (17:24)
[2024-05-06] MEDS: metroNIDAZOLE 500 MG/ISO 100ML 500 MG/100 ML BAG 100 MG IVPB (18:29)
[2024-05-06 20:12] LABS: Thyroid Stimulating Hormone Reflex 0.881 uIU/mL (0.465-4.68)
[2024-05-06 20:48] LABS: Sodium 115 mmol/L (137-145)
[2024-05-07] VITALS (17 sets, daily range): BP systolic 103–129; BP diastolic 56–74; PULSE 66–92; RESP 18–28; TEMP 36.1–38.3; O2SAT 90–94
[2024-05-07] MEDS: metroNIDAZOLE 500 MG/ISO 100ML 500 MG/100 ML BAG 100 MG IVPB ×4 (00:30→17:02)
[2024-05-07 02:54] LABS: Anion Gap 9 mmol/L (4-12); Blood Urea Nitrogen 2 mg/dL (7-17); Calcium 7.4 mg/dL (8.4-10.2); Carbon Dioxide 17 mmol/L (22-30); Chloride 89 mmol/L (98-107); Estimated CRCL calculation 89 ml/min; Estimated Glomerular Filt Rate > 60; Glucose 97 mg/dL (65-110); Potassium 3.2 mmol/L (3.4-5.0); Sodium 115 mmol/L (137-145)
[2024-05-07] MEDS: POTASSIUM CHLORIDE 20 MEQ ER TABLET 40 MEQ PO (04:07)
[2024-05-07 06:42] LABS: Basophils Percent Auto 0.3 % (0.2-1.2); Hematocrit 33.6 % (37.0-47.0); Hemoglobin 12.4 g/dL (12.0-15.0); Immature Granulocyte Absolute 0.02 K/mm3 (0.00-0.031); Immature Granulocyte Percent A 0.5 % (0-0.5); Lymphocytes Absolute Auto 0.92 K/mm3 (0.9-3.2); Lymphocytes Percent Auto 23.1 % (18.3-44.2); Mean Corpuscular HGB Conc 36.9 g/dl (32-36); Mean Corpuscular Hemoglobin 32.1 pg (26-34); Monocytes Absolute Auto 0.2 K/mm3 (0.1-0.6); Neutrophils Absolute Auto 2.8 K/mm3 (1.3-6.7); Neutrophils Percent Auto 71.1 % (45.5-73.1); Platelet Count Result 147 k/mm3 (150-375); Red Blood Count 3.86 M/mm3 (4.2-5.4); Red Cell Distribution Width 11.7 % (11.5-14.5)
[2024-05-07 07:17] LABS: Alanine Aminotransferase 56 U/L (6-35); Albumin Level 3.5 g/dL (3.5-5.1); Alkaline Phosphatase 63 U/L (38-126); Anion Gap 8 mmol/L (4-12); Aspartate Amino Transferase 73 U/L (14-36); Bilirubin,Total 0.5 mg/dL (0.2-1.3); Blood Urea Nitrogen 2 mg/dL (7-17); Calcium 7.4 mg/dL (8.4-10.2); Carbon Dioxide 18 mmol/L (22-30); Chloride 87 mmol/L (98-107); Estimated CRCL calculation 90 ml/min; Estimated Glomerular Filt Rate > 60; Glucose 123 mg/dL (65-110); Magnesium 1.8 mg/dL (1.6-2.3); Potassium 3.2 mmol/L (3.4-5.0); Sodium 113 mmol/L (137-145)
[2024-05-07] MEDS: clonazePAM (*CRX) 0.5 MG TABLET 2 MG PO (08:35)
[2024-05-07] MEDS: FOLIC ACID 1 MG TABLET PO (08:36)
[2024-05-07] MEDS: THIAMINE HCL 100 MG TABLET PO (08:36)
[2024-05-07] MEDS: ENOXAPARIN 40 MG/0.4 ML SYRINGE SUB-Q (08:36)
[2024-05-07] MEDS: SODIUM CHLORIDE 3% 280 ML 70 ML IV CONT (11:09)
[2024-05-07 12:48] LABS: Creatinine, Random Urine 85 mg/dL (20-275); Total Protein/Creatinine Ratio 612 mg/g creat (24-184)
--- NOTE | 2024-05-07 14:00 | P.PNNP_ITS ---
Progress Note: A&P Assessment and Plan (1) Hyponatremia: Code(s): E87.1 - Hypo-osmolality and hyponatremia Status: Acute Assessment and Plan: * acute on chronic * reported runs in the mid to high 120s at baseline * outside records reviewed: * last labs in April 2023 with a sodium of 128 * sodium seems to run ~ 123 - 128 in the last few years * saw Dr. Quinn for evaluation -- low sodium thought to be due to excessive fluid intake + alcohol abuse * risk factors for low sodium at this time: * pre-renal factors (nausea/vomiting/diarrhea) * medications (Lamictal) * excessive fluid/free water intake (not on fluid restriction as an outpatient) * alcohol abuse * smoking * 3% saline today given further drop in sodium level * overcorrection on admision requiring with DDAVP and D5W IVFs * goal of therapy is a rate of change of 6 - 8mmol/L in 24 hours * hold Lamictal (can be associated with low sodium levels) * evaluation to date noted: * TSH okay * cortisol not low * SPEP/UPEP pending * follow trend of repeat sodium levels (2) Gastroenteritis: Code(s): K52.9 - Noninfective gastroenteritis and colitis, unspecified Status: Acute Assessment and Plan: * presumably viral or food related * stool studies noted * PRN antiemetics and antimotility agents for now * previous CT of abdomen did not show any intra-abdominal pathology * continue supporticve therapy (3) Hypokalemia: Code(s): E87.6 - Hypokalemia Status: Acute Assessment and Plan: * related to GI losses and low magneosium * replace as needed * follow trend of K+ (4) Hypertension: Code(s): I10 - Essential (primary) hypertension Status: Chronic Assessment and Plan: * reasonable control * BP medications with parameters * follow trend of hemodynamics (5) Alcohol abuse: Code(s): F10.10 - Alcohol abuse, uncomplicated Status: Chronic Assessment and Plan: * known extensive history * no reported issues with withdrawal in the past * [facility] protocol in place Will continue to follow. Subjective Date/time seen: 05/07/24 14:00 Interval history: Follow-up for acute on chronic hyponatremia. Sodium dropped even further as noted by AM labs so initiated on 3% saline earlier today in an effort to improve her sodium level; no apparent distress noted but still having on/off fevers. Exam 2 Narrative: General: middle aged but WD/WN female in NAD Heart: normal S1 and S2; no rub Lungs: clear to auscultation Abdomen: soft, nontender, nondistended, positive bowel sounds Extremities: no cyanosis or clubbing; no edema Skin: warm and dry Objective Data Vital Signs Vital Signs: Vital Signs Temp Pulse Pulse Resp BP Pulse Ox O2 Del Method 05/07/24 14:00 72 05/07/24 12:00 74 05/07/24 11:21 97 F L 75 28 H 122/65 94 05/07/24 10:00 79 05/07/24 08:00 74 05/07/24 08:00 82 05/07/24 07:42 101 F H 82 25 H 125/74 91 05/07/24 06:00 90 05/07/24 04:00 92 05/07/24 04:00 98.7 F 91 20 129/66 94 05/07/24 02:00 66 05/07/24 00:00 85 05/06/24 22:00 81 05/06/24 20:55 96 Room Air 05/06/24
--- NOTE | 2024-05-07 14:00 | PM.PNNEP ---
Progress Note: A&P Assessment and Plan (1) Hyponatremia: Code(s): E87.1 - Hypo-osmolality and hyponatremia Status: Acute Assessment and Plan: acute on chronic reported runs in the mid to high 120s at baseline outside records reviewed: last labs in April 2023 with a sodium of 128 sodium seems to run ~ 123 - 128 in the last few years saw Dr. Quinn for evaluation -- low sodium thought to be due to excessive fluid intake + alcohol abuse risk factors for low sodium at this time: pre-renal factors (nausea/vomiting/diarrhea) medications (Lamictal) excessive fluid/free water intake (not on fluid restriction as an outpatient) alcohol abuse smoking 3% saline today given further drop in sodium level overcorrection on admision requiring with DDAVP and D5W IVFs goal of therapy is a rate of change of 6 - 8mmol/L in 24 hours hold Lamictal (can be associated with low sodium levels) evaluation to date noted: TSH okay cortisol not low SPEP/UPEP pending follow trend of repeat sodium levels (2) Gastroenteritis: Code(s): K52.9 - Noninfective gastroenteritis and colitis, unspecified Status: Acute Assessment and Plan: presumably viral or food related stool studies noted PRN antiemetics and antimotility agents for now previous CT of abdomen did not show any intra-abdominal pathology continue supporticve therapy (3) Hypokalemia: Code(s): E87.6 - Hypokalemia Status: Acute Assessment and Plan: related to GI losses and low magneosium replace as needed follow trend of K+ (4) Hypertension: Code(s): I10 - Essential (primary) hypertension Status: Chronic Assessment and Plan: reasonable control BP medications with parameters follow trend of hemodynamics (5) Alcohol abuse: Code(s): F10.10 - Alcohol abuse, uncomplicated Status: Chronic Assessment and Plan: known extensive history no reported issues with withdrawal in the past [facility] protocol in place Will continue to follow. Subjective Date/time seen: 05/07/24 14:00 Interval history: Follow-up for acute on chronic hyponatremia. Sodium dropped even further as noted by AM labs so initiated on 3% saline earlier today in an effort to improve her sodium level; no apparent distress noted but still having on/off fevers. Exam Narrative: General: middle aged but WD/WN female in NAD Heart: normal S1 and S2; no rub Lungs: clear to auscultation Abdomen: soft, nontender, nondistended, positive bowel sounds Extremities: no cyanosis or clubbing; no edema Skin: warm and dry Objective Data Vital Signs Vital Signs: Vital Signs Temp Pulse Pulse Resp BP Pulse Ox O2 Del Method 05/07/24 14:00 72 05/07/24 12:00 74 05/07/24 11:21 97 F L 75 28 H 122/65 94 05/07/24 10:00 79 05/07/24 08:00 74 05/07/24 08:00 82 05/07/24 07:42 101 F H 82 25 H 125/74 91 05/07/24 06:00 90 05/07/24 04:00 92 05/07/24 04:00 98.7 F 91 20 129/66 94 05/07/24 02:00 66 05/07/24 00:00 85 05/06/24 22:00 81 05/06/24 20:55 96 Room Air 05/06/24 23:52 99.5 F 70 20 136/70 95 05/06/24 20:00 74 05/06/24 20:00 71 111/63 05/06/24 19:33 99.7 F H 77 24 H 111/63 96 05/06/24 18:20 99.7 F H 05/06/24 17:59 78 05/06/24 16:00 Room Air 05/06/24 17:22 102 F H 05/06/24 16:00 82 05/06/24 15:39 100.5 F H 79 24 H 130/73 97 Intake/Output Intake/Output: Intake & Output 05/04/24 05/05/24 05/06/24 05/07/24 23:59 23:59 23:59 23:59 Intake Total 3570 1857.5 1450 Output Total 300 1900 3725 Balance 3270 -42.5 -2275 Meds/Results Medications: Active Medications Generic Name Dose Route Start Last Admin Trade Name Freq PRN Reason Stop Dose Admin Acetaminophen 650 mg 05/05/24 21:51
[2024-05-07 15:30] LABS: Albumin 3.1 g/dL (3.8-4.8); Alpha 1 Globulin 0.4 g/dL (0.2-0.3); Alpha 2 Globulin 0.9 g/dL (0.5-0.9); Beta 1 Globulin 0.4 g/dL (0.4-0.6); Gamma Globulin 0.9 g/dL (0.8-1.7)
--- NOTE | 2024-05-07 15:36 | PM.IMPN ---
Progress Note: A&P Assessment and Plan (1) Hyponatremia: Code(s): E87.1 - Hypo-osmolality and hyponatremia Status: Acute (2) Gastroenteritis: Code(s): K52.9 - Noninfective gastroenteritis and colitis, unspecified Status: Acute (3) Alcohol abuse: Code(s): F10.10 - Alcohol abuse, uncomplicated Status: Acute (4) Hypokalemia: Code(s): E87.6 - Hypokalemia Status: Acute (5) Transaminitis: Code(s): R74.01 - Elevation of levels of liver transaminase levels Status: Acute (6) Hypertension: Code(s): I10 - Essential (primary) hypertension Status: Acute (7) Hyperlipidemia: Code(s): E78.5 - Hyperlipidemia, unspecified Status: Acute Plan This is a pleasant 53-year-old female with history of hypertension, hyperlipidemia, depression, anxiety, and alcohol abuse who presented to the emergency department for evaluation of diarrhea and weakness. She and her daughter ate at [employer] on evening and not long thereafter they both developed nausea, vomiting, and loose stools. In the ED: She was afebrile on arrival with stable blood pressures. Labs were significant for a WBC count of 3.6, hemoglobin 13.0, platelet 145, sodium 116, potassium 2.6, chloride 84, carbon dioxide 21, BUN 8, creatinine 0.90, glucose 129, calcium 8.0, AST 120, ALT 83, lipase 154. Urinalysis was unremarkable. Urine drug screen was negative. Ethyl alcohol level was less than 10. In the ED she was given a 3 L saline bolus, 2 g magnesium, and 40 mEq of potassium chloride. Repeat BMP in the evening showed a sodium of 129 and she was given 2 mcg subQ DDAVP and has been started on D5 water after conferring with investigation division lieutenant, Dr. Kessler. She is being admitted in this setting for close monitoring. Acute on chronic hyponatremia corrected too rapidly with normal saline. Treated with DDAVP and D5 water. Nephrology has been consulted and further treatment per Nephrology recommendations. Will hold Lamictal due to hyponatremia Anxiety disorder on clonazepam which will be resumed acute gastroenteritis, possibly viral though cannot rule out food-borne illness as she and her daughter both got sick after eating at [employer]. she remains intermittently febrile . CT of the abdomen pelvis done 2 days ago did not show findings of enteritis or colitis. Stool studies have been ordered . Await Start of any antibiotic for now. C diff came back negative metabolic acidosis non-anion gap likely due to diarrhea Currently on a fecal management system which was placed 05/05/2024. Antiemetics and antimotility agents are available as needed. Alcohol dependence: No drink since . [facility] protocol continue to monitor. Elevated liver enzymes with elevated AST ALT. Right upper quadrant ultrasound with hepatomegaly and cyst in right lobe of liver otherwise unremarkable. Hypertension blood pressure medication on hold due to hypotension on losartan at home Hyperlipidemia on rosuvastatin at home currently on hold due to elevated liver enzymes plan add questran and imodium to bulk up the stool remove fecal tube if stool bulks up continue 3% NS watch sodium levels Nephrology managing sodium levels long discussion about quiting alcholol continue Librium and thiamine and MV watch sodium levels and dc in 2-3 days time PT/ OT ordered Subjective Date/time seen: 05/07/24 15:36 Interval history: Pt really wanting to go home Sodium levels still low at 113 Dr Kessler managing sodium levels Pt having ongoing diarrhea with rectal tube in situ Review of Systems Review of Systems: No acute issues Exam Const: General: cooperative, healthy appearing and overweight; No in distress Nutritional Appearance: overweight Orientation/consciousness: oriented to person HENMT: Head: normal to inspection Resp: Effort & Inspection: no respiratory distress Auscultation: no rhonchi and no wheezes Card
[2024-05-07 16:03] LABS: Osmolality, Urine 497 mOsm/kg (50-1200)
[2024-05-07 16:44] LABS: Sodium 119 mmol/L (137-145)
[2024-05-07] MEDS: LOPERAMIDE HCL 2 MG CAPSULE PO (16:56)
[2024-05-07] MEDS: CHOLESTYRAMINE (W/ SUGAR) 4 GM POWD.PACK PO (16:57)
[2024-05-07] MEDS: clonazePAM (*CRX) 0.5 MG TABLET 1 MG PO (17:02)
[2024-05-07 20:36] LABS: Sodium 122 mmol/L (137-145)
[2024-05-07] MEDS: DEXTROSE 5% IN WATER 500 ML 200 ML IV CONT (22:20)
[2024-05-08] VITALS (17 sets, daily range): BP systolic 90–122; BP diastolic 51–72; PULSE 64–76; RESP 18–24; TEMP 36.4–37.6; O2SAT 90–97
[2024-05-08] MEDS: metroNIDAZOLE 500 MG/ISO 100ML 500 MG/100 ML BAG 100 MG IVPB ×3 (00:43→19:46)
[2024-05-08 01:47] LABS: Sodium 122 mmol/L (137-145)
[2024-05-08] MEDS: DEXTROSE 5% IN WATER 500 ML 200 ML IV CONT (03:22)
[2024-05-08 07:31] LABS: Alanine Aminotransferase 51 U/L (6-35); Albumin Level 3.3 g/dL (3.5-5.1); Alkaline Phosphatase 58 U/L (38-126); Anion Gap 7 mmol/L (4-12); Aspartate Amino Transferase 64 U/L (14-36); Bilirubin,Total 0.5 mg/dL (0.2-1.3); Blood Urea Nitrogen 2 mg/dL (7-17); Calcium 7.7 mg/dL (8.4-10.2); Carbon Dioxide 21 mmol/L (22-30); Chloride 95 mmol/L (98-107); Estimated CRCL calculation 89 ml/min; Estimated Glomerular Filt Rate > 60; Glucose 103 mg/dL (65-110); Potassium 2.9 mmol/L (3.4-5.0); Sodium 123 mmol/L (137-145)
[2024-05-08] MEDS: THERAPEUTIC MULTIVITAMINS/MINERALS TAB (*BKC) 1 TABLET PO (09:10)
[2024-05-08] MEDS: THIAMINE HCL 100 MG TABLET PO (09:10)
[2024-05-08] MEDS: POTASSIUM CHLORIDE 20 MEQ ER TABLET 60 MEQ PO (09:10)
[2024-05-08] MEDS: ENOXAPARIN 40 MG/0.4 ML SYRINGE SUB-Q (09:11)
[2024-05-08] MEDS: CHOLESTYRAMINE (W/ SUGAR) 4 GM POWD.PACK PO ×2 (09:11→19:48)
[2024-05-08] MEDS: DEXTROSE 5% IN WATER 500 ML 250 ML IV CONT ×2 (09:11→13:42)
[2024-05-08] MEDS: FOLIC ACID 1 MG TABLET PO (09:11)
[2024-05-08] MEDS: LOPERAMIDE HCL 2 MG CAPSULE PO (09:18)
--- NOTE | 2024-05-08 10:26 | PM.PNNEP ---
Progress Note: A&P Assessment and Plan (1) Hyponatremia: Code(s): E87.1 - Hypo-osmolality and hyponatremia Status: Acute Assessment and Plan: improvement noted acute on chronic reported runs in the mid to high 120s at baseline outside records reviewed: last labs in April 2023 with a sodium of 128 sodium seems to run ~ 123 - 128 in the last few years saw Dr. Quinn for evaluation -- low sodium thought to be due to excessive fluid intake + alcohol abuse risk factors for low sodium at this time: pre-renal factors (nausea/vomiting/diarrhea) medications (Lamictal) excessive fluid/free water intake (not on fluid restriction as an outpatient) alcohol abuse smoking 3% saline today given further drop in sodium level overcorrection on admision requiring with DDAVP and D5W IVFs goal of therapy is a rate of change of 6 - 8mmol/L in 24 hours hold Lamictal (can be associated with low sodium levels) evaluation to date noted: TSH okay cortisol not low SPEP/UPEP pending follow trend of repeat sodium levels (2) Gastroenteritis: Code(s): K52.9 - Noninfective gastroenteritis and colitis, unspecified Status: Acute Assessment and Plan: presumably viral or food related stool studies noted PRN antiemetics and antimotility agents for now previous CT of abdomen did not show any intra-abdominal pathology continue supporticve therapy (3) Hypokalemia: Code(s): E87.6 - Hypokalemia Status: Acute Assessment and Plan: related to GI losses and low magneosium replace as needed follow trend of K+ (4) Hypertension: Code(s): I10 - Essential (primary) hypertension Status: Chronic Assessment and Plan: reasonable control BP medications with parameters follow trend of hemodynamics (5) Alcohol abuse: Code(s): F10.10 - Alcohol abuse, uncomplicated Status: Chronic Assessment and Plan: known extensive history no reported issues with withdrawal in the past [facility] protocol in place Will continue to follow. Subjective Date/time seen: 05/08/24 10:26 Interval history: Follow-up for acute on chronic hyponatremia. Sodium doing better with 3% saline in the last 24 hours but on the edge of overcorrection so giving some D5W IVFs and may need another dose of DDAVP; otherwise, seems to be doing okay; no apparent distress noted. Exam Narrative: General: middle aged but WD/WN female in NAD Heart: normal S1 and S2; no rub Lungs: clear to auscultation Abdomen: soft, nontender, nondistended, positive bowel sounds Extremities: no cyanosis or clubbing; no edema Skin: warm and intact Objective Data Vital Signs Vital Signs: Vital Signs Temp Pulse Pulse Resp BP Pulse Ox O2 Del Method 05/08/24 07:59 99.0 F 67 20 90/60 L 90 05/08/24 05:20 65 05/08/24 04:00 65 05/08/24 04:00 64 18 95 Room Air 05/08/24 04:00 64 94/57 L 05/08/24 05:06 97.5 F L 64 18 94/57 L 95 05/08/24 01:31 71 05/08/24 00:00 71 18 90 Room Air 05/08/24 00:00 71 118/71 05/08/24 00:00 68 05/07/24 22:00 71 05/07/24 20:00 68 05/07/24 20:00 77 18 94 Room Air 05/07/24 23:48 98.5 F 71 18 118/71 90 05/07/24 20:00 77 111/61 05/07/24 21:10 97.8 F 77 18 111/61 94 05/07/24 18:00 69 05/07/24 16:00 84 05/07/24 16:01 98.3 F 70 22 H 103/56 L 94 05/07/24 14:00 72 05/07/24 12:00 74 Intake/Output Intake/Output: Intake & Output 05/05/24 05/06/24 05/07/24 05/08/24 23:59 23:59 23:59 23:59 Intake Total 3570 1857.5 2020 2340 Output Total 300 1900 6275 3200 Balance 3270 -42.5 -4255 -860 Meds/Results Medications: Active Medications Generic Name Dose Route Start Last Admin Trade Name Rickq PRN Reason Stop Dose Admin Acetaminophen 650 mg 05/05/24 21:51 05/06/24 17:
--- NOTE | 2024-05-08 10:26 | P.PNNP_ITS ---
Progress Note: A&P Assessment and Plan (1) Hyponatremia: Code(s): E87.1 - Hypo-osmolality and hyponatremia Status: Acute Assessment and Plan: * improvement noted * acute on chronic * reported runs in the mid to high 120s at baseline * outside records reviewed: * last labs in April 2023 with a sodium of 128 * sodium seems to run ~ 123 - 128 in the last few years * saw Dr. Quinn for evaluation -- low sodium thought to be due to excessive fluid intake + alcohol abuse * risk factors for low sodium at this time: * pre-renal factors (nausea/vomiting/diarrhea) * medications (Lamictal) * excessive fluid/free water intake (not on fluid restriction as an outpatient) * alcohol abuse * smoking * 3% saline today given further drop in sodium level * overcorrection on admision requiring with DDAVP and D5W IVFs * goal of therapy is a rate of change of 6 - 8mmol/L in 24 hours * hold Lamictal (can be associated with low sodium levels) * evaluation to date noted: * TSH okay * cortisol not low * SPEP/UPEP pending * follow trend of repeat sodium levels (2) Gastroenteritis: Code(s): K52.9 - Noninfective gastroenteritis and colitis, unspecified Status: Acute Assessment and Plan: * presumably viral or food related * stool studies noted * PRN antiemetics and antimotility agents for now * previous CT of abdomen did not show any intra-abdominal pathology * continue supporticve therapy (3) Hypokalemia: Code(s): E87.6 - Hypokalemia Status: Acute Assessment and Plan: * related to GI losses and low magneosium * replace as needed * follow trend of K+ (4) Hypertension: Code(s): I10 - Essential (primary) hypertension Status: Chronic Assessment and Plan: * reasonable control * BP medications with parameters * follow trend of hemodynamics (5) Alcohol abuse: Code(s): F10.10 - Alcohol abuse, uncomplicated Status: Chronic Assessment and Plan: * known extensive history * no reported issues with withdrawal in the past * [facility] protocol in place Will continue to follow. Subjective Date/time seen: 05/08/24 10:26 Interval history: Follow-up for acute on chronic hyponatremia. Sodium doing better with 3% saline in the last 24 hours but on the edge of overcorrection so giving some D5W IVFs and may need another dose of DDAVP; otherwise, seems to be doing okay; no apparent distress noted. Exam Narrative: General: middle aged but WD/WN female in NAD Heart: normal S1 and S2; no rub Lungs: clear to auscultation Abdomen: soft, nontender, nondistended, positive bowel sounds Extremities: no cyanosis or clubbing; no edema Skin: warm and intact Objective Data Vital Signs Vital Signs: Vital Signs Temp Pulse Pulse Resp BP Pulse Ox O2 Del Method 05/08/24 07:59 99.0 F 67 20 90/60 L 90 05/08/24 05:20 65 05/08/24 04:00 65 05/08/24 04:00 64 18 95 Room Air 05/08/24 04:00 64 94/57 L 05/08/24 05:06 97.5 F L 64 18 94/57 L 95 05/08/24 01:31 71 05/08/24 00:00 71 18 90 Room Air 05/08/24 00:00 71 118/71 05/08/24 00:00 68 05/07/24 22:00 71 05/07/24 20:00 68 05/07/24 20:00 7
--- NOTE | 2024-05-08 11:02 | PM.IMPN ---
Progress Note: A&P Assessment and Plan (1) Hyponatremia: Code(s): E87.1 - Hypo-osmolality and hyponatremia Status: Acute Assessment and Plan: 05/08: Being managed by Nephrology. Sodium went from 113 to 123 in less than 24 hours so she received D5W and it continued to rise to 127 today. Significant diuresis noted, patient with very dry skin and mouth on exam (2) Gastroenteritis: Code(s): K52.9 - Noninfective gastroenteritis and colitis, unspecified Status: Acute Assessment and Plan: 05/08: Continued diarrhea, nursing staff informed to give loperamide to attempt to be able to remove Fecal Management System. Continue Flagyl Replace electrolytes and daily labs (3) Alcohol abuse: Code(s): F10.10 - Alcohol abuse, uncomplicated Status: Acute Assessment and Plan: 05/08: CIWA with PRN benzos ordered (4) Hypokalemia: Code(s): E87.6 - Hypokalemia Status: Acute Assessment and Plan: 05/08: Potassium 2.9 this morning, 60 mEq ordered oral (5) Transaminitis: Code(s): R74.01 - Elevation of levels of liver transaminase levels Status: Acute Assessment and Plan: 05/08: Stable, improving (6) Hypertension: Code(s): I10 - Essential (primary) hypertension Status: Acute Assessment and Plan: 05/08: Blood pressures decreased today, antihypertensives stopped (7) Hyperlipidemia: Code(s): E78.5 - Hyperlipidemia, unspecified Status: Acute Assessment and Plan: Continue home medication Time Spent With Patient Time with patient: Greater than 35 minutes Subjective Date/time seen: 05/08/24 09:52 Interval history: Patient noted to be lower blood pressure this morning an drowsy. Nursing staff held morning dose of clonazepam. Noted significant amount of diuresis over the last 24 hours. Sodium level increased 10 points in 24 hours and is being managed by Nephrology. Repeat sodium continues to rise despite treatment with D5W. Patient appears somewhat dehydrated on exam. Patient reports that she had terrible depression in the past and that she is currently on clonazepam 2 mg daily and has been on this dose for extended period of time. She no longer takes a nighttime dose. We will discontinue nighttime clonazepam. As needed lorazepam and Librium present for elevated CIWA scores as needed. Nursing staff notified that patient lost IV access, they will establish another peripheral but because the frequent blood draws and balancing repletion with over-correction ordered PICC line to be placed tomorrow when staff is available. Review of Systems Review of Systems: All systems reviewed & are unremarkable except as noted in HPI and below Exam Narrative: GENERAL: drowsy appearing, in no acute distress HEAD: Normocephalic, atraumatic. ENT:? Mucous membranes dry. CHEST: Clear to auscultation.? No respiratory distress. HEART: Regular rate and rhythm. ? Normal peripheral pulses. ABDOMEN: Soft, nontender, nondistended. EXTREMITIES: Normal range of motion. No peripheral edema. SKIN: Warm to touch, normal color, skin dryappearing NEURO: Alert and oriented x3. PSYCH: Normal mood and affect Objective Data Vital Signs Vital Signs: Vital Signs - 24 hr 05/07/24 11:21 05/07/24 12:00 05/07/24 14:00 Temperature 36.1 C L Pulse Rate 75 74 72 Pulse Rate [Monitor] Respiratory Rate 28 H Blood Pressure 122/65 Pulse Oximetry 94 Oxygen Delivery 05/07/24 16:01 05/07/24 16:00 05/07/24 18:00 Temperature 36.8 C Pulse Rate 70 84 69 Pulse Rate [Monitor] Respiratory Rate 22 H Blood Pressure 103/56 L Pulse Oximetry 94 Oxygen Delivery 05/07/24 21:10 05/07/24 20:00 05/07/24 23:48 Temperature 36.6 C 36.9 C Pulse Rate 77 71 Pulse Rate [Monitor] 77 Respiratory Rate 18 18 Blood Pressure 111/61 111/61 118/71 Pulse Oximetry 94 90 Oxygen Delivery 05/07/24 20:00 05/07/24
[2024-05-08 12:53] LABS: Sodium 127 mmol/L (137-145)
[2024-05-08] MEDS: DESMOPRESSIN ACETATE 4 MCG/ML AMP 1 MCG SUB-Q (13:42)
[2024-05-08 17:37] LABS: Anion Gap 6 mmol/L (4-12); Blood Urea Nitrogen 4 mg/dL (7-17); Calcium 7.8 mg/dL (8.4-10.2); Carbon Dioxide 25 mmol/L (22-30); Chloride 93 mmol/L (98-107); Estimated CRCL calculation 105 ml/min; Estimated Glomerular Filt Rate > 60; Glucose 120 mg/dL (65-110); Magnesium 2.1 mg/dL (1.6-2.3); Potassium 3.5 mmol/L (3.4-5.0); Sodium 124 mmol/L (137-145)
[2024-05-08] MEDS: POTASSIUM CHLORIDE 20 MEQ ER TABLET 40 MEQ PO (19:48)
[2024-05-08 21:10] LABS: Sodium 124 mmol/L (137-145)
--- NOTE | 2024-05-08 21:20 | PC.NURSE ---
Repeat Na 124. Unchanged from previous. Message left for Dr. Kessler @ 2113 reporting Na level and that pt has no further labs ordered until a CBC, BMP at 0500.
[2024-05-09] VITALS (8 sets, daily range): BP systolic 90–119; BP diastolic 61–68; PULSE 62–76; RESP 17–18; TEMP 36.1–36.8; O2SAT 92–98
[2024-05-09] MEDS: metroNIDAZOLE 500 MG/ISO 100ML 500 MG/100 ML BAG 100 MG IVPB ×4 (00:09→17:01)
[2024-05-09] MEDS: LOPERAMIDE HCL 2 MG CAPSULE PO ×3 (00:09→16:23)
[2024-05-09] MEDS: ALBUTEROL SULFATE (*SP) AEROSOL 1 PUFF 2 PUFF INHALATION (00:18)
[2024-05-09 05:01] LABS: Basophils Percent Auto 0.7 % (0.2-1.2); Eosinophils Percent Auto 0.5 % (0-4.4); Hemoglobin 11.3 g/dL (12.0-15.0); Immature Granulocyte Absolute 0.03 K/mm3 (0.00-0.031); Immature Granulocyte Percent A 0.7 % (0-0.5); Lymphocytes Absolute Auto 1.64 K/mm3 (0.9-3.2); Lymphocytes Percent Auto 38.1 % (18.3-44.2); Mean Corpuscular HGB Conc 36.5 g/dl (32-36); Mean Corpuscular Volume 87.8 fl (80-100); Mean Platelet Volume 10.5 fl (7.4-10.4); Monocytes Absolute Auto 0.3 K/mm3 (0.1-0.6); Monocytes Percent Auto 7.7 % (2.6-8.5); Neutrophils Absolute Auto 2.3 K/mm3 (1.3-6.7); Neutrophils Percent Auto 52.3 % (45.5-73.1); Platelet Count Result 238 k/mm3 (150-375); Red Blood Count 3.53 M/mm3 (4.2-5.4); Red Cell Distribution Width 12.2 % (11.5-14.5); White Blood Count 4.3 K/mm3 (4.5-10.0)
[2024-05-09 05:15] LABS: Alanine Aminotransferase 41 U/L (6-35); Albumin Level 3.2 g/dL (3.5-5.1); Alkaline Phosphatase 59 U/L (38-126); Anion Gap 4 mmol/L (4-12); Aspartate Amino Transferase 47 U/L (14-36); Bilirubin,Total 0.6 mg/dL (0.2-1.3); Calcium 7.8 mg/dL (8.4-10.2); Carbon Dioxide 26 mmol/L (22-30); Chloride 93 mmol/L (98-107); Estimated CRCL calculation 90 ml/min; Estimated Glomerular Filt Rate > 60; Glucose 87 mg/dL (65-110); Magnesium 1.9 mg/dL (1.6-2.3); Potassium 4.1 mmol/L (3.4-5.0); Sodium 123 mmol/L (137-145)
[2024-05-09 05:20] LABS: Blood Urea Nitrogen < 2 mg/dL (7-17)
[2024-05-09 05:27] LABS: Anisocytosis 1+; Burr Cells 2+; Platelet Estimate Slightly Decreased (Adequate); Schistocytes None Seen
[2024-05-09] MEDS: THIAMINE HCL 100 MG TABLET PO (08:32)
[2024-05-09] MEDS: THERAPEUTIC MULTIVITAMINS/MINERALS TAB (*BKC) 1 TABLET PO (08:32)
[2024-05-09] MEDS: clonazePAM (*CRX) 0.5 MG TABLET 2 MG PO (08:32)
[2024-05-09] MEDS: FOLIC ACID 1 MG TABLET PO (08:32)
--- NOTE | 2024-05-09 10:09 | PM.IMPN ---
Progress Note: A&P Assessment and Plan (1) Hyponatremia: Code(s): E87.1 - Hypo-osmolality and hyponatremia Status: Acute Assessment and Plan: 05/08: Being managed by Nephrology. Sodium went from 113 to 123 in less than 24 hours so she received D5W and it continued to rise to 127 today. Significant diuresis noted, patient with very dry skin and mouth on exam 05/09: sodium 123 with morning labs, 125 late morning, next draw 1800 usual range 123 to 128. May consider discharge in 1-3 days if electrolytes remained stable (2) Gastroenteritis: Code(s): K52.9 - Noninfective gastroenteritis and colitis, unspecified Status: Acute Assessment and Plan: 05/08: Continued diarrhea, nursing staff informed to give loperamide to attempt to be able to remove Fecal Management System. Continue Flagyl Replace electrolytes and daily labs 05/09: fecal management system is out, diarrhea is less with use of Imodium, electrolytes stabilizing (3) Alcohol abuse: Code(s): F10.10 - Alcohol abuse, uncomplicated Status: Acute Assessment and Plan: 05/08: CIWA with PRN benzos ordered 05/09: no elevated CIWAs, discontinue CIWA protocol (4) Hypokalemia: Code(s): E87.6 - Hypokalemia Status: Acute Assessment and Plan: 05/08: Potassium 2.9 this morning, 60 mEq ordered oral-- 3.5 in the afternoon supplemented an additional 40 mEq of oral 05/09: potassium 4.1 with morning labs. Magnesium 1.9. Sodium 123 (5) Transaminitis: Code(s): R74.01 - Elevation of levels of liver transaminase levels Status: Acute Assessment and Plan: 05/08: Stable, improving (6) Hypertension: Code(s): I10 - Essential (primary) hypertension Status: Acute Assessment and Plan: 05/08: Blood pressures decreased today, antihypertensives stopped 05/09: stable to borderline low (7) Hyperlipidemia: Code(s): E78.5 - Hyperlipidemia, unspecified Status: Acute Assessment and Plan: Continue home medication Plan downgrade to med surg Time Spent With Patient Time: Total time spent 95 minutes inclusive of long [id number] update, later [id number] with patient's for same date as well downgraded from IMU [id number] Time with patient: Greater than 35 minutes Subjective Date/time seen: 05/09/24 10:09 Interval history: Spoke to Nephrology who was able to see prior lab results and patient's sodium usually runs from 123-128 over the past year or more. This morning she was 123 level was repeated late morning and found to be 125. No further 3% sodium at this time. Will recheck again at 6:00 p.m.. Patient appears much more awake alert and less ill. She is no longer significantly auto diuresing. [place] catheter removed. Patient downgraded to [facility] with hope to discharge in 1-3 days depending on electrolyte balance. Review of Systems Review of Systems: All systems reviewed & are unremarkable except as noted in HPI and below Exam Narrative: GENERAL: awake alert oriented improved mental status, less ill-appearing HEAD: Normocephalic, atraumatic. ENT:? Mucous membranes moist. CHEST: Clear to auscultation.? No respiratory distress. HEART: Regular rate and rhythm. ? Normal peripheral pulses. sinus rhythm rate of 70 on telemetry monitoring per my interpretation ABDOMEN: Soft, nontender, nondistended. EXTREMITIES: Normal range of motion. No peripheral edema. SKIN: warm, normal color, not diaphoretic or excessively dry NEURO: Alert and oriented x3. PSYCH: Normal mood and affect Objective Data Vital Signs Vital Signs: Vital Signs - 24 hr 05/08/24 12:00 05/08/24 15:58 05/08/24 12:00 Temperature 37.1 C 37.6 C H Pulse Rate 76 70 68 Respiratory Rate 20 24 H Blood Pressure 92/51 L 102/70 Pulse Oximetry 95 94 Oxygen Delivery 05/08/24 14:00 05/08/24 16:00 05/08/24 12:00 Temperature Pulse Rate 69 64 Respiratory Rate
[2024-05-09] MEDS: CHOLESTYRAMINE (W/ SUGAR) 4 GM POWD.PACK PO ×2 (10:26→17:01)
--- NOTE | 2024-05-09 10:38 | PM.PNNEP ---
Progress Note: A&P Assessment and Plan (1) Hyponatremia: Code(s): E87.1 - Hypo-osmolality and hyponatremia Status: Acute Assessment and Plan: improvement noted acute on chronic reported runs in the mid to high 120s at baseline outside records reviewed: last labs in April 2023 with a sodium of 128 sodium seems to run ~ 123 - 128 in the last few years has been as low as 118 and as high as [address] Quinn for evaluation -- low sodium thought to be due to excessive fluid intake + alcohol abuse risk factors for low sodium at this time: pre-renal factors (nausea/vomiting/diarrhea) medications (Lamictal) excessive fluid/free water intake (not on fluid restriction as an outpatient) alcohol abuse smoking s/p 3% saline given on 05/07 further drop in sodium level overcorrection on admision requiring with DDAVP and D5W IVFs goal of therapy is a rate of change of 6 - 8mmol/L in 24 hours hold Lamictal (can be associated with low sodium levels) evaluation to date noted: TSH okay cortisol not low SPEP/UPEP without paraproteinemia follow trend of repeat sodium levels (2) Gastroenteritis: Code(s): K52.9 - Noninfective gastroenteritis and colitis, unspecified Status: Acute Assessment and Plan: presumably viral or food related stool studies noted PRN antiemetics and antimotility agents for now previous CT of abdomen did not show any intra-abdominal pathology continue supporticve therapy (3) Hypokalemia: Code(s): E87.6 - Hypokalemia Status: Acute Assessment and Plan: related to GI losses and low magneosium replace as needed follow trend of K+ (4) Hypertension: Code(s): I10 - Essential (primary) hypertension Status: Chronic Assessment and Plan: reasonable control BP medications with parameters follow trend of hemodynamics (5) Alcohol abuse: Code(s): F10.10 - Alcohol abuse, uncomplicated Status: Chronic Assessment and Plan: known extensive history no reported issues with withdrawal in the past CIWA protocol in place Will continue to follow. Subjective Date/time seen: 05/09/24 10:38 Interval history: Follow-up for acute on chronic hyponatremia. Sodium appears to be stabilizing with current therapy/interventions; diarrhea seems to be doing better with no recent fevers in the last 24 hours; anxious for discharge at this time. Exam Narrative: General: middle aged but WD/WN female in NAD Heart: normal S1 and S2; no rub Lungs: clear to auscultation Abdomen: soft, nontender, nondistended, positive bowel sounds Extremities: no cyanosis or clubbing; no edema Skin: no rash Objective Data Vital Signs Vital Signs: Vital Signs Temp Pulse Resp BP Pulse Ox O2 Del Method 05/09/24 08:00 62 05/09/24 07:36 97.8 F 70 18 102/62 98 05/09/24 06:00 67 05/09/24 04:00 64 05/09/24 02:00 66 05/09/24 04:00 98.2 F 66 18 119/68 92 05/09/24 00:00 64 05/08/24 23:55 98.8 F 66 18 122/72 96 05/08/24 22:00 69 05/08/24 20:00 65 05/08/24 19:45 98.4 F 64 18 102/60 97 05/08/24 18:00 68 05/08/24 16:00 Room Air 05/08/24 16:00 64 05/08/24 15:58 99.7 F H 70 24 H 102/70 94 Intake/Output Intake/Output: Intake & Output 05/06/24 05/07/24 05/08/24 05/09/24 23:59 23:59 23:59 23:59 Intake Total 1857.5 2020 4280 1240 Output Total 1900 6275 5475 525 Balance -42.5 -4255 -1195 715 Meds/Results Medications: Active Medications Generic Name Dose Route Start Last Admin Trade Name Freq PRN Reason Stop Dose Admin Acetaminophen 650 mg 05/05/24 21:51 05/06/24 17:22 Acetaminophen 325 Mg Tablet PO 650 mg Q6H PRN Administration Mild Pain (1-3) or Fever Albuterol 2.5 mg 05/06/24 16:00 Albuterol Sulfate Neb 2.5 Mg/3 Ml Inh INHALATION Q6H PRN NORMA
--- NOTE | 2024-05-09 10:38 | P.PNNP_ITS ---
Progress Note: A&P Assessment and Plan (1) Hyponatremia: Code(s): E87.1 - Hypo-osmolality and hyponatremia Status: Acute Assessment and Plan: * improvement noted * acute on chronic * reported runs in the mid to high 120s at baseline * outside records reviewed: * last labs in April 2023 with a sodium of 128 * sodium seems to run ~ 123 - 128 in the last few years * has been as low as 118 and as high as 131 * saw Dr. Quinn for evaluation -- low sodium thought to be due to excessive fluid intake + alcohol abuse * risk factors for low sodium at this time: * pre-renal factors (nausea/vomiting/diarrhea) * medications (Lamictal) * excessive fluid/free water intake (not on fluid restriction as an outpatient) * alcohol abuse * smoking * s/p 3% saline given on 05/07 further drop in sodium level * overcorrection on admision requiring with DDAVP and D5W IVFs * goal of therapy is a rate of change of 6 - 8mmol/L in 24 hours * hold Lamictal (can be associated with low sodium levels) * evaluation to date noted: * TSH okay * cortisol not low * SPEP/UPEP without paraproteinemia * follow trend of repeat sodium levels (2) Gastroenteritis: Code(s): K52.9 - Noninfective gastroenteritis and colitis, unspecified Status: Acute Assessment and Plan: * presumably viral or food related * stool studies noted * PRN antiemetics and antimotility agents for now * previous CT of abdomen did not show any intra-abdominal pathology * continue supporticve therapy (3) Hypokalemia: Code(s): E87.6 - Hypokalemia Status: Acute Assessment and Plan: * related to GI losses and low magneosium * replace as needed * follow trend of K+ (4) Hypertension: Code(s): I10 - Essential (primary) hypertension Status: Chronic Assessment and Plan: * reasonable control * BP medications with parameters * follow trend of hemodynamics (5) Alcohol abuse: Code(s): F10.10 - Alcohol abuse, uncomplicated Status: Chronic Assessment and Plan: * known extensive history * no reported issues with withdrawal in the past * [facility] protocol in place Will continue to follow. Subjective Date/time seen: 05/09/24 10:38 Interval history: Follow-up for acute on chronic hyponatremia. Sodium appears to be stabilizing with current therapy/interventions; diarrhea seems to be doing better with no recent fevers in the last 24 hours; anxious for discharge at this time. Exam Narrative: General: middle aged but WD/WN female in NAD Heart: normal S1 and S2; no rub Lungs: clear to auscultation Abdomen: soft, nontender, nondistended, positive bowel sounds Extremities: no cyanosis or clubbing; no edema Skin: no rash Objective Data Vital Signs Vital Signs: Vital Signs Temp Pulse Resp BP Pulse Ox O2 Del Method 05/09/24 08:00 62 05/09/24 07:36 97.8 F 70 18 102/62 98 05/09/24 06:00 67 05/09/24 04:00 64 05/09/24 02:00 66 05/09/24 04:00 98.2 F 66 18 119/68 92 05/09/24 00:00 64 05/08/24 23:55 98.8 F 66 18 122/72 96 05/08/24 22:00 69 05/08/24 20:00 65 05/08/24 19:45 98.4 F 64 18 102/60 97 05/08/24 18:00 68 05/08/24 16
[2024-05-09 11:22] LABS: Sodium 125 mmol/L (137-145)
--- NOTE | 2024-05-09 11:32 | PC.NURSE ---
Pt. arrived to room 326 at 11:32.
[2024-05-09 19:28] LABS: Sodium 128 mmol/L (137-145)
[2024-05-10] MEDS: metroNIDAZOLE 500 MG/ISO 100ML 500 MG/100 ML BAG 100 MG IVPB ×2 (00:56→06:39)
[2024-05-10 05:54] LABS: Basophils Percent Auto 0.6 % (0.2-1.2); Eosinophils Absolute Auto 0.1 K/mm3 (0-0.3); Eosinophils Percent Auto 3.2 % (0-4.4); Hemoglobin 11.5 g/dL (12.0-15.0); Immature Granulocyte Absolute 0.02 K/mm3 (0.00-0.031); Immature Granulocyte Percent A 0.6 % (0-0.5); Lymphocytes Absolute Auto 1.27 K/mm3 (0.9-3.2); Lymphocytes Percent Auto 37.4 % (18.3-44.2); Mean Corpuscular HGB Conc 34.8 g/dl (32-36); Mean Corpuscular Hemoglobin 31.9 pg (26-34); Mean Corpuscular Volume 91.4 fl (80-100); Mean Platelet Volume 9.9 fl (7.4-10.4); Monocytes Absolute Auto 0.3 K/mm3 (0.1-0.6); Neutrophils Absolute Auto 1.6 K/mm3 (1.3-6.7); Neutrophils Percent Auto 48.2 % (45.5-73.1); Platelet Count Result 326 k/mm3 (150-375); Red Blood Count 3.61 M/mm3 (4.2-5.4); Red Cell Distribution Width 12.5 % (11.5-14.5); White Blood Count 3.4 K/mm3 (4.5-10.0)
[2024-05-10 06:00] VITALS: BP 113/67; PULSE 62; RESP 18; TEMP 36.4; O2SAT 94
[2024-05-10 06:01] LABS: Alanine Aminotransferase 38 U/L (6-35); Albumin Level 3.4 g/dL (3.5-5.1); Alkaline Phosphatase 66 U/L (38-126); Anion Gap 4 mmol/L (4-12); Aspartate Amino Transferase 47 U/L (14-36); Bilirubin,Total 0.7 mg/dL (0.2-1.3); Blood Urea Nitrogen 2 mg/dL (7-17); Calcium 8.5 mg/dL (8.4-10.2); Carbon Dioxide 27 mmol/L (22-30); Chloride 96 mmol/L (98-107); Estimated CRCL calculation 90 ml/min; Estimated Glomerular Filt Rate > 60; Glucose 95 mg/dL (65-110); Magnesium 2.1 mg/dL (1.6-2.3); Potassium 3.7 mmol/L (3.4-5.0); Sodium 127 mmol/L (137-145)
[2024-05-10 06:48] LABS: Anisocytosis 1+; Platelet Estimate Adequate (Adequate); Schistocytes None Seen
[2024-05-10] MEDS: ACETAMINOPHEN 325 MG TABLET 650 MG PO (10:16)
[2024-05-10] MEDS: THIAMINE HCL 100 MG TABLET PO (10:16)
[2024-05-10] MEDS: THERAPEUTIC MULTIVITAMINS/MINERALS TAB (*BKC) 1 TABLET PO (10:16)
[2024-05-10] MEDS: FOLIC ACID 1 MG TABLET PO (10:17)
[2024-05-10] MEDS: lamoTRIgine 100 MG TABLET 200 MG PO (10:17)
[2024-05-10] MEDS: clonazePAM (*CRX) 0.5 MG TABLET 2 MG PO (10:17)
[2024-05-10] MEDS: LOPERAMIDE HCL 2 MG CAPSULE PO (10:22)
--- NOTE | 2024-05-10 10:40 | PM.DS ---
DS: Admitting Diagnosis Discharge Date 05/10/2024 Admitting Diagnosis hyponatremia, gastroenteritis, alcohol abuse, hypokalemia, transaminitis, hypertension, hyperlipidemia DS: Discharge Diagnosis Discharge Diagnosis (1) Hyponatremia: Code(s): E87.1 - Hypo-osmolality and hyponatremia Status: Acute (2) Gastroenteritis: Code(s): K52.9 - Noninfective gastroenteritis and colitis, unspecified Status: Acute (3) Alcohol abuse: Code(s): F10.10 - Alcohol abuse, uncomplicated Status: Chronic (4) Hypokalemia: Code(s): E87.6 - Hypokalemia Status: Acute (5) Transaminitis: Code(s): R74.01 - Elevation of levels of liver transaminase levels Status: Acute (6) Hypertension: Code(s): I10 - Essential (primary) hypertension Status: Chronic (7) Hyperlipidemia: Code(s): E78.5 - Hyperlipidemia, unspecified Status: Acute (8) Anxiety: Code(s): F41.9 - Anxiety disorder, unspecified Status: Acute (9) Depression: Code(s): F32.9 - Major depressive disorder, single episode, unspecified Status: Acute DS: Summary Hospital Course Hospital Course: This is a 53-year-old female patient past history of anxiety depression alcohol abuse hypertension who was admitted for nausea vomiting diarrhea hyponatremia transaminitis and confusion. Patient also had significant hypokalemia throughout hospital stay. Nephrology was consulted to help balance sodium. Patient had episode of over correction requiring D5W and DDAVP which resulted in going too low again and had a 2nd of slight over-correction requiring additional D5W and DDAVP. After 2nd over-correction patient was brought down to a safe level and slowly return to her normal without further intervention. Her normal sodium level ranges from 123 to 128 but she was experiencing significant confusion when she was in the 113-120 range. Her Lamictal was held for a few days as this can cause low sodium. This was restarted prior to discharge. Patient was informed of the need for make a long-term fluid restriction about 2 L and that she needs to stop drinking alcohol. Patient has follow-up planned with primary care. She states that her usual treatment for these problems is done at [place] but she thought she was only coming in for diarrhea so she came to this facility. Status at Discharge Cognitive/behavioral status at discharge: Awake alert and oriented Functional status at discharge: independent ambulation Overall status at discharge: patient is back to baseline Time Spent with Patient Time attestation: Total time spent providing and/or coordinating discharge services: 60 minutes Time spent: Greater than 30 minutes Exam Narrative: GENERAL: awake alert oriented improved mental status, well appearing HEAD: Normocephalic, atraumatic. ENT:? Mucous membranes moist. CHEST: Clear to auscultation.? No respiratory distress. HEART: Regular rate and rhythm. ? Normal peripheral pulses. ABDOMEN: Soft, nontender, nondistended. EXTREMITIES: Normal range of motion. No peripheral edema. SKIN: warm, normal color, not diaphoretic or excessively dry NEURO: Alert and oriented x3. PSYCH: sharp affect at times DS: Data Data Completed and Pending Labs on day of discharge: Labs from last 24 hours 05/10/24 05/09/24 05/09/24 05:39 19:08 10:58 WBC 3.4 L RBC 3.61 L Hgb 11.5 L Hct 33.0 L MCV 91.4 MCH 31.9 MCHC 34.8 RDW 12.5 Plt Count 326 MPV 9.9 Immature Gran % (Auto) 0.6 H Neut % (Auto) 48.2 Lymph % (Auto) 37.4 Mcdowell % (Auto) 10.0 H Eos % (Auto) 3.2 Baso % (Auto) 0.6 Lymph # (Auto) 1.27 Mcdowell # (Auto) 0.3 Eos # (Auto) 0.1 Baso # (Auto) 0.0 Abs Immat Gran (auto) 0.02 Absolute Neuts (auto) 1.6 Absolute Nucleated RBC 0.000 Nucleated RBC % 0.0 Platelet Estimate Adequate Anisocytosis 1+ Schistocytes None seen
== END 2024-05-10 12:55 | disposition home or self-care (01) | DRG 641 ==
LOC: ANHED 17:21 → ANHIMU 17:52 → ANH3MEDSUR 05-09 11:16
PROVIDERS: Internal Medicine Nephrology; Physician Assistant; Admitting Provider Internal Medicine; Emergency Provider Emergency Medicine; Visit Provider Nurse Practitioner
DX: E87.1 Hypo-osmolality and hyponatremia (principal); K52.9 Noninfective gastroenteritis and colitis, unspecified; E87.6 Hypokalemia; E87.20 Acidosis, unspecified; I95.9 Hypotension, unspecified; E78.5 Hyperlipidemia, unspecified; J45.909 Unspecified asthma, uncomplicated; F32.A Depression, unspecified; F41.9 Anxiety disorder, unspecified; F17.210 Nicotine dependence, cigarettes, uncomplicated; F10.10 Alcohol abuse, uncomplicated; Z87.442 Personal history of urinary calculi
CPT/HCPCS: 36415; 74177; 76705; 80048; 80053; 80307; 81001; 81003; 81025; 81050; 82533; 82550; 82570; 83605; 83690; 83735; 83930; 83935; 84155; 84156; 84165; 84166; 84295; 84300; 84443; 84540; 85025; 85027; 85610; 87040; 87045; 87426; 87427; 87449; 87493; 87804; 93005; 94640; 96360; 96361; 96365; 96366; 96367; 96375; 96376; 97161; 97165; 99284; 99285; A9270; C8929; G0378; J0696; J1650; J1836; J2405; J2597; J3411; J3475; J3480; J7030; J7040; J7060; J7131; Q9957; Q9967

== ENCOUNTER 2025-10-30 11:24 | Emergency (ER) | payer OTHER, SELFPAY ==
[2025-10-30 11:36] VITALS: BP 159/97; PULSE 73; RESP 20; TEMP 36.4; O2SAT 100
--- NOTE | 2025-10-30 11:49 | ED.NECK ---
HPI - Neck Pain/Injury General Chief Complaint: Neck Pain/Injury Stated Complaint: Neck Pain Source: patient Mode of arrival: ambulatory Limitations: no limitations History of Present Illness HPI Narrative: this is a 55-year-old female patient who presents to the emergency department with a one-week history of left neck pain. Patient states a week ago she woke up in the morning and noticed that her left neck hurt. She states she can rotate her neck but it does hurt. She can look up and down, no neurovascular complications to left arm. She states she has been using heating pad, and Gaudencio-Hayward. Does relieve some of the pain. However she states at times it feels as if she is disc being grabbed by the muscle area in the side of her neck. She denies any other injury or any concerns otherwise. MD complaint: neck pain Onset (ago): week(s) (1) Place: home Radiation: left shoulder Severity: mild Quality: dull Duration: constant Relieving factors: none Exacerbating factors: none Associated symptoms: none Treatments prior to arrival: none Related Data Home Medications ?Medication ?Instructions ?Recorded ?Confirmed ?Last Taken ?Type clonazepam 2 mg tablet 2 mg PO BID 12/28/22 05/05/24 Unknown History lamotrigine 200 mg tablet 200 mg PO DAILY 12/28/22 05/05/24 Unknown History albuterol sulfate 2.5 mg/3 mL See Rx Instructions .Route .COMPLEX 05/03/24 05/05/24 Unknown History (0.083 %) solution for nebulization albuterol sulfate 90 mcg/actuation See Rx Instructions .Route .COMPLEX 05/03/24 05/05/24 Unknown History aerosol inhaler atorvastatin 20 mg tablet mg 10/30/25 Unknown History estradiol 0.05 mg/24 hr semiweekly 10/30/25 Unknown History transdermal patch Allergies Allergy/AdvReac Type Severity Reaction Status Date / Time codeine Allergy Intermediate Vomiting Verified 10/30/25 11:48 sulfamethoxazole Allergy Intermediate Hives / Verified 10/30/25 11:48 Red Face trimethoprim Allergy Intermediate Hives / Verified 10/30/25 11:48 Red Face levofloxacin Allergy Unknown Unknown Verified 10/30/25 11:48 hydrocodone AdvReac Intermediate vomiting Verified 10/30/25 11:48 NARCOTICS AdvReac Intermediate vomiting Uncoded 06/29/24 16:13 profusely Review of Systems Review of Systems: All systems reviewed & are unremarkable except as noted in HPI and below PMFSH Past Medical History Medical History Kidney stones Hyperlipidemia Hypertension Alcohol abuse Endometriosis Migraines Asthma Depression Anxiety Surgical History Surgical History History of hysterectomy Family History Family History Grandparent Carcinoma of colon Father Diabetes mellitus Hypertension Mother Hypertension Sibling Hypertension Social History Social History Social History: Surrogate medical decision maker: Starr Khan, daughter. Code status: Full code. Smoking packs per day: 1 Smoking cigarettes per day: 20.0 Years smoked: 30 Smoking pack-years: 30.00 Smoking status: Current every day smoker Alcohol intake: current Drinks per week: 40 Alcohol use details: 6-12 pack of beer per day. Substance use: never Lack of Transportation: No Lack of Food: Never True Current Housing: I Have Housing Concerned About Future Housing: No Difficulty Paying Gas/Electric Bills: No Difficulty Paying for Meds: No Currently Unemployed: No Education: Associate Degree Difficulty w/ Childcare or Family Care: No Spiritual care concerns: No Exam Const: General: healthy appearing Nutritional Appearance: well nourished Orientation/consciousness: patient oriented x3 Limitations: no limitations HENMT: Head: normal to inspection Ears: external ears normal Face/Nose/Sinus: Normal external nose present Face and sinus: normal facial exam Mouth: Yes Normal oral and palatal mucosa present Teeth and gingiva: dentition normal Throat: posterior oropharynx normal Eyes: Conjunctivae: conjunctivae normal Pupils: Equal, round and reactive pupils present EOM: EOMs intact bilaterally Neck: Neck: supple and tender (to the left lateral neck muscle group. Full ROM, neurovascular intact) Lymphatic: no lymphadenopathy noted Chest: Chest palpation & inspection: normal inspection of the chest Resp: Effort & Inspection: normal respiratory effort Auscultation: clear to auscultation bilaterally Cardio: Rate: regular rate Rhythm: regular rhythm GI: GI Palp: Yes Soft to palpation Auscultation: normal bowel sounds Skin: General skin exam: normal color Rashes: no rashes Wounds: no wounds Neuro: General: patient oriented x3 Cranial nerves: Yes Nystagmus not present Speech: normal speech Gait exam (Neuro): Normal gait present Extrem: General: normal to inspection Psych: Mental Status: mental status grossly normal Affect: normal affect Attitude: cooperative Course Course Emergency Course: this is a 55-year-old female patient who presents to the emergency department with a one-week history of left neck pain. Patient states a week ago she woke up in the morning and noticed that her left neck hurt. She states she can rotate her neck but it does hurt. She can look up and down, no neurovascular complications to left arm. She states she has been using heating pad, and Gaudencio-Hayward. Does relieve some of the pain. However she states at times it feels as if she is disc being grabbed by the muscle area in the side of her neck. She denies any other injury or any concerns. Vital signs stable discussed exam in great detail, treatment, and outpatient management. She verbalizes understanding she is agreeable to this plan. Discussed taking prednisone twice daily for the next 5 days, continue Tylenol and ibuprofen as needed for pain. Continue with Flexeril however avoid alcohol, driving, operate heavy machinery while taking Flexeril for muscle relaxing. Discussed [id number] exercises and continue with heating pad. Continue with topical BenGay as needed. Answered all her questions to her satisfaction she is agreeable to this plan. Educated patient to follow up with her primary care provider next 2-3 days for further evaluation and exam return to the emergency department any worrisome sign or symptom. The patient denies any further needs or concerns to be addressed prior to discharge Level of Care: Express Care Visit Vital Signs Vital signs: Vital Signs Temperature 97.6 F 10/30/25 11:36 Pulse Rate 73 10/30/25 11:36 Respiratory Rate 20 10/30/25 11:36 Blood Pressure 159/97 H 10/30/25 11:36 Pulse Oximetry 100 10/30/25 11:36 Oxygen Delivery Room Air 10/30/25 11:36 Temperature 97.6 F 10/30/25 11:36 Pulse Rate 73 10/30/25 11:36 Respiratory Rate 20 10/30/25 11:36 Blood Pressure 159/97 H 10/30/25 11:36 Pulse Oximetry 100 10/30/25 11:36 Oxygen Delivery Room Air 10/30/25 11:36 [facility] MDM Narrative Medical decision making narrative: this is a 55-year-old female patient who presents to the emergency department with a one-week history of left neck pain. Patient states a week ago she woke up in the morning and noticed that her left neck hurt. She states she can rotate her neck but it does hurt. She can look up and down, no neurovascular complications to left arm. She states she has been using heating pad, and Gaudencio-Hayward. Does relieve some of the pain. However she states at times it feels as if she is disc being grabbed by the muscle area in the side of her neck. She denies any other injury or any concerns. Vital signs stable discussed exam in great detail, treatment, and outpatient management. She verbalizes understanding she is agreeable to this plan. Discussed taking prednisone twice daily for the next 5 days, continue Tylenol and ibuprofen as needed for pain. Continue with Flexeril however avoid alcohol, driving, operate heavy machinery while taking Flexeril for muscle relaxing. Discussed [id number] exercises and continue with heating pad. Continue with topical BenGay as needed. Answered all her questions to her satisfaction she is agreeable to this plan. Educated patient to follow up with her primary care provider next 2-3 days for further evaluation and exam return to the emergency department any worrisome sign or symptom. The patient denies any further needs or concerns to be addressed prior to discharge Differential Diagnosis Differential Diagnosis: cervical strain, neck strain, muscle spasms Medical Records I have reviewed the following patient records and this information was taken into consideration when formulating the assessment and plan.: previous clinic visits Discharge Plan Discharge Clinical Impression: Strain of neck muscle Qualifiers: Encounter type: initial encounter Qualified Code(s): S16.1XXA - Strain of muscle, fascia and tendon at neck level, initial encounter Patient Disposition: Home Condition: Stable Instructions: Cervical Strain (ED) Additional Instructions: Increase water intake rest continue with heat pad to the area for 20 minutes and off one hour continue with prednisone taper as prescribed Continue with muscle relaxer as prescribed every 8 hours, do not drive, consume alcohol, operate heavy machinery while taking muscle relaxers. Continue Tylenol ibuprofen as needed for pain. Follow-up the primary care provider in next 2-3 days further evaluation exam Return to the emergency department any worrisome sign or symptom Patient Language: Macedonian Prescriptions: New cyclobenzaprine 10 mg tablet 10 mg PO TID PRN (Reason: muscle spasm) Qty: 15 0RF prednisone 20 mg tablet 20 mg PO BID Qty: 10 0RF No Action lamotrigine 200 mg tablet 200 mg PO DAILY clonazepam 2 mg tablet 2 mg PO BID Patient Comments: Recent change from current regimen, confirmed by daughter and . Rx Instructions: 2mg in A.M. 1mg P.M. albuterol sulfate 2.5 mg /3 mL (0.083 %) solution for nebulization See Rx Instructions .ROUTE .COMPLEX Rx Instructions: Rx albuterol sulfate 90 mcg/actuation HFA aerosol inhaler See Rx Instructions .ROUTE .COMPLEX Rx Instructions: Rx atorvastatin 20 mg tablet estradiol 0.05 mg/24 hr patch semiweekly ondansetron 4 mg tablet,disintegrating 4 mg PO Q8H PRN (Reason: nausea and vomiting) Qty: 15 0RF Follow-up/Referrals: Daniele,Bill Granger MD [Primary Care Provider, Unknown] Time of Disposition: 12:04
== END 2025-10-30 12:10 | disposition home or self-care (01) ==
PROVIDERS: Emergency Provider Nurse Practitioner Family; PCP Internal Medicine
DX: S16.1XXA Strain of muscle, fascia and tendon at neck level, initial encounter (principal); X58.XXXA Exposure to other specified factors, initial encounter; I10 Essential (primary) hypertension; E78.5 Hyperlipidemia, unspecified; N80.9 Endometriosis, unspecified; J45.909 Unspecified asthma, uncomplicated; F41.9 Anxiety disorder, unspecified; F32.A Depression, unspecified; F17.210 Nicotine dependence, cigarettes, uncomplicated
CPT/HCPCS: 99213; G0463